=== PATIENT | male | born 1955 | race Caucasian/White ===

== ENCOUNTER 2019-09-27 09:47 | Emergency (ER) | payer MEDICARE, BC, SELFPAY ==
[2019-09-27 09:56] VITALS: BP 149/90; PULSE 61; RESP 16; TEMP 36.6; O2SAT 98; BMI 27.1
--- NOTE | 2019-09-27 10:14 | W.ED.ANIMALB ---
HPI - Animal Bite General: Chief Complaint: Animal Bite Stated Complaint: dog bite Time Seen by Provider: 09/27/19 10:03 History of Present Illness: HPI narrative: Patient was riding his bicycle and was bit on the lower left leg by the neighbors dog. complaint: animal bite Onset (ago): minute(s) Animal: dog Description of animal: household pet, immunizations unknown and appeared well Mechanism: bite Location - Extremities: Left: lower leg Pain description: sharp Severity scale (1-10): 2 Context: other Associated symptoms: Reports no associated symptoms Review of Systems General: Reports: 10 or more systems reviewed and unremarkable except in HPI and below PFSH ED PFSH: Social History Smoking and tobacco status: never smoked Physical Exam Narrative: EXAM NARRATIVE: Puncture wound with some excoriated tissue to the anterior aspect of the lower left leg. There is also a puncture wound with excoriated tissue on the posterior lateral aspect of the left lower leg. Course Vital Signs: Vital signs: Vital Signs Temperature 97.8 F 09/27/19 09:56 Pulse Rate 61 09/27/19 09:56 Respiratory Rate 16 09/27/19 09:56 Blood Pressure 149/90 09/27/19 09:56 Pulse Oximetry 98 09/27/19 09:56 MDM - Animal Bite MDM Narrative: Medical decision making narrative: The wounds were thoroughly cleaned with Betadine. Patient was given a tetanus shot and a prescription for antibiotics. Discharge Plan Discharge Patient Disposition: Home, Self-Care Clinical Impression: Dog bite Qualifiers: Encounter type: initial encounter Qualified Code(s): W54.0XXA - Bitten by dog, initial encounter Condition: Stable Prescriptions: New Augmentin 875-125 mg tablet 1 tab PO BID Qty: 20 RF: 0 No Action metoprolol tartrate 25 mg tablet 12.5 mg PO BID 30 Days Qty: 30 RF: 6 Aspir-81 81 mg Tablet,Delayed Release (Dr/Ec) 81 mg PO DAILY RF: 0 Plavix 75 mg tablet 75 mg PO DAILY RF: 0 simvastatin 40 mg tablet 40 mg PO DAILY RF: 0 Discharge Orders: Discharge Order (Routine); Ordered 09/27/19 Ordered By: Yury Olivares Referrals: Emil Lynch Jr, MD [Primary Care Provider] - Patient Instructions: Animal Bite (ED) Coding Level of Care Code ED Environmental Health Physician for Rajesh Sykes
[2019-09-27] MEDS: tetanus-diphtheria tox (adult) 0.5 mL SDV IM (10:26)
== END 2019-09-27 10:28 | disposition home or self-care (01) ==
PROVIDERS: Emergency Provider Family Medicine; PCP Family Medicine
DX: S81.852A Open bite, left lower leg, initial encounter (principal); W54.0XXA Bitten by dog, initial encounter; Z79.82 Long term (current) use of aspirin; Z23 Encounter for immunization
CPT/HCPCS: 12345; 90471; 90714; 99281; 99283

== ENCOUNTER 2019-12-22 05:44 | Outpatient (CLI) | payer MEDICARE, BC, SELFPAY ==
--- NOTE | 2019-12-25 13:21 | ONC FU_ITS ---
Dr. Vargas follow up note Patient: Richie Hahn Unit #: [id number]: 1955 Dicatated By: Shin Vargas M.D.Date of Visit:Dec 22, 2019 Telehealth Progress Note The patient has been informed that the visit may not be secure and acknowledged the information. I have explained the option of participating in a telephone or video visit during the [facility]- public [facility] emergency to the patient. After being given an opportunity to ask questions about and discuss this type of visit, the patient verbally consented to proceeding with the telephone/video visit. the patient understands that this service replaces an office visit and they may be billed and /or responsible for any applicable copayments History of Present Illness: Mr. Lamin Hahn, 64-year-old gentleman with an abnormal CBC.. In February 2016 was found to have mildly elevated white blood count at 13.2 and differential showed mild increase in lymphocytes 47% normal platelet count and H&H repeat labs on 09/21/2016 showed white blood count 15.4, hemoglobin 15.5 crit 47.5 platelets 259 , neutrophil 38% lymphocytes 54% and a CBC from 11/07/2016 showed white blood count stable at 15.2 hemoglobin 15.3 crit 47.4 platelets 265 neutrophils 37% lymphocytes 55% with a normal monocytes eosinophils and basophils Flow cytometry done on 11/26/2016 confirmed CLL/small lymphocytic lymphoma and FISH showed negative for deletion of MYB, MERT, RB1, chromosome 13q and TP 53, trisomy 12, IGH rearrangement, IGH-CCND1 (11;14) fusion. Evaluated via telephone, patient denies any specific complaints, no night sweats, no fever chills, no weight loss, no peripheral lymphadenopathy, no abdominal fullness, no generalized weakness and fatigue, no nosebleed or gum bleed, no jaundice, no melena or hematochezia or petechia or ecchymosis, no early fullness, no hemoptysis or hematemesis or nosebleed. Medications: Aspirin 1 Tablet (of 81 mg) Tablet, enteric coated Oral daily, Clopidogrel Bisulfate 1 Tablet (of 75 mg) Oral daily, Metoprolol Tartrate 1 Tablet (of 25 mg) Oral b.i.d., Nitrostat Tablet, sublingual Sublingual PRN, Simvastatin 1 Tablet (of 40 mg) Oral daily Allergies: No Known Allergies. Review of Systems: Review of Systems is not available for this patient. Vital Signs: Vitals are not available for this patient. Performance Status: 0 - Fully active, able to carry on all predisease activities without restrictions. (ECOG) Physical Examination: ENMT - Patient denies any mouth sores thrush or jaundice, Respiratory - Patient denies any shortness of breath or wheezing, Cardiovascular - Patient denies any palpitation or tachycardia, Abdomen - Patient denies any abdominal pain or fullness, Extremities - Patient denies any visible edema. 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 Her lab work-up is within normal range except persistent mild leukocytosis/lymphocytosis Patient also had question regarding coronavirus prevention, patient was advised to be her mask in public places and maintains social distancing and in case he has any flulike symptoms, need to contact us or PMD or go to public health department for COVID-19 testing. We will continue to monitor and he will return to clinic in 6 months with CBC and LDH Time spent on the phone 14 minutes Signed By: Shin Vargas M.D. <<Signature on File>>
== END 2019-12-22 05:45 | disposition home or self-care (01) ==
LOC: ONCMED 05:46
PROVIDERS: PCP Family Medicine; Visit Provider Internal Medicine Hematology & Oncology
DX: C91.10 Chronic lymphocytic leukemia of B-cell type not having achieved remission (principal)

== ENCOUNTER 2020-06-22 12:59 | Outpatient (CLI) | payer MEDICARE, BC, SELFPAY ==
[2020-06-22 13:37] LABS: Basophils # 0.1 10^3/uL (0.0-0.1); Basophils % 0.4 %; Eosinophils # 0.2 10^3/uL (0.0-0.8); Eosinophils % 0.8 %; Hematocrit 48.8 % (42.0-52.0); Hemoglobin 16.3 g/dL (11.7-16.6); Lymphocytes # 14.1 10^3/uL (0.8-4.8); Lymphocytes % 61.2 %; Mean Corpuscular HGB Conc 33.4 g/dL (30.0-36.0); Mean Corpuscular Hemoglobin 30.6 pg (28.0-34.0); Mean Corpuscular Volume 91.6 fL (80-94); Mean Platelet Volume 9.1 fL (7.4-10.4); Monocytes # 3.1 10^3/uL (0.2-0.9); Monocytes % 13.3 %; Neutrophils # 5.53 10^3/uL (1.8-7.7); Nucleated Red Blood Cells % 0 %; Platelet Count 255 10^3/cmm (130-400); Red Blood Count 5.33 10^6/uL (4.1-5.3); White Blood Count 23.1 10^3/uL (4.0-10.0)
[2020-06-22 14:26] LABS: Lactate Dehydrogenase 232 U/L (135-225)
[2020-06-22 14:38] LABS: Slide Review Slide Review Perform
--- NOTE | 2020-06-22 16:48 | ONC FU_ITS ---
Dr. Vargas follow up note Patient: Richie Hahn Unit #: [id number]: 1955 Dicatated By: Shin Vargas M.D.Date of Visit:Jun 22, 2020 Onc Med Follow-up/Prog Note History of Present Illness: Mr. Lamin Hahn, 64-year-old gentleman with an abnormal CBC.. In February 2016 was found to have mildly elevated white blood count at 13.2 and differential showed mild increase in lymphocytes 47% normal platelet count and H&H repeat labs on 09/21/2016 showed white blood count 15.4, hemoglobin 15.5 crit 47.5 platelets 259 , neutrophil 38% lymphocytes 54% and a CBC from 11/07/2016 showed white blood count stable at 15.2 hemoglobin 15.3 crit 47.4 platelets 265 neutrophils 37% lymphocytes 55% with a normal monocytes eosinophils and basophils Flow cytometry done on 11/26/2016 confirmed CLL/small lymphocytic lymphoma and FISH showed negative for deletion of MYB, MERT, RB1, chromosome 13q and TP 53, trisomy 12, IGH rearrangement, IGH-CCND1 (11;14) fusion. Came for follow-up, denies any specific complaints, no fever chills, no nausea or vomiting, no diarrhea constipation, no night sweats, no recurrent fever, but 2 pounds weight loss, patient has recently started keto diet. No peripheral lymphadenopathy, no abdominal fullness. Medications: Aspirin 1 Tablet (of 81 mg) Tablet, enteric coated Oral daily, Clopidogrel Bisulfate 1 Tablet (of 75 mg) Oral daily, Metoprolol Tartrate 1 Tablet (of 25 mg) Oral b.i.d., Nitrostat Tablet, sublingual Sublingual PRN, Simvastatin 1 Tablet (of 40 mg) Oral daily Allergies: No Known Allergies. Review of Systems: Review of Systems is not available for this patient. Vital Signs: Performed on Jun 22, 2020 15:14 Height - 72.00 in Weight - 199.6 lbs (HIGH) BSA - 2.13 sq.m BMI - 27.07 Temperature - 99.1 F (HIGH) Pulse - 63 /min Respiration - 18 /min BP - 142/85 mm(hg) (HIGH) O2 Sat - 97 % Pain - 0 Fatigue - 0 Performance Status: 0 - Fully active, able to carry on all predisease activities without restrictions. (ECOG) Physical Examination: ENMT - , No mouth sores, no thrush, no jaundice, no cervical or axillary lymphadenopathy, Respiratory - Lungs are clear to auscultation, Cardiovascular - Regular rate and rhythm of heart, Abdomen - Soft, bowel sounds present, Extremities - No visible edema. Lab/Imaging: Most recent lab results are not available for this patient. 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 Lab work-up is stable and in normal range except mild/moderate leukocytosis/lymphocytosis due to CLL, will continue to monitor and he will return to clinic in 6 months. Patient has received Covid vaccine x1 and awaiting for second dose. Signed By: Shin Vargas M.D. <<Signature on File>>
== END 2020-06-22 13:00 | disposition home or self-care (01) ==
LOC: ONCMED 13:03
PROVIDERS: PCP Family Medicine; Visit Provider Internal Medicine Hematology & Oncology
DX: C91.10 Chronic lymphocytic leukemia of B-cell type not having achieved remission (principal)
CPT/HCPCS: 83615; 85025; 99214

== ENCOUNTER 2020-12-21 10:58 | Outpatient (CLI) | payer MEDICARE, BC, SELFPAY ==
[2020-12-21 11:43] LABS: Basophils # 0.1 10^3/uL (0.0-0.1); Basophils % 0.5 %; Eosinophils # 0.3 10^3/uL (0.0-0.8); Eosinophils % 1.3 %; Hematocrit 47.9 % (42.0-52.0); Hemoglobin 16.1 g/dL (11.7-16.6); Lymphocytes # 16.5 10^3/uL (0.8-4.8); Lymphocytes % 63.6 %; Mean Corpuscular HGB Conc 33.6 g/dL (30.0-36.0); Mean Corpuscular Hemoglobin 31.1 pg (28.0-34.0); Mean Corpuscular Volume 92.6 fl (80-94); Mean Platelet Volume 8.7 fL (7.4-10.4); Monocytes # 3.5 10^3/uL (0.2-0.9); Monocytes % 13.7 %; Neutrophils # 5.36 10^3/uL (1.8-7.7); Neutrophils % 20.7 %; Nucleated Red Blood Cells % 0 %; Platelet Count 268 10^3/cmm (130-400); Red Blood Count 5.17 10^6/uL (4.1-5.3); Red Cell Distribution Width 13.1 % (12.1-15.1); White Blood Count 25.9 10^3/uL (4.0-10.0)
[2020-12-21 12:04] LABS: Alanine Aminotransferase 22 U/L (0-41); Alkaline Phosphatase 55 IU/L (40-130); Anion Gap 14.5 (5-19); Aspartate Amino Transferase 22 U/L (0-40); Blood Urea Nitrogen 20 mg/dL (8-23); Calcium 8.8 mg/dL (8.5-10.5); Carbon Dioxide 23 mmol/L (22-29); Chloride 106 mmol/L (98-107); Globulin 2.3 g/dL (1.3-4.6); Glomerular Filtration Rate 112.5 mL/min (90-130); Glucose 95 mg/dL (65-115); Lactate Dehydrogenase 178 U/L (135-225); Osmolality Calculated 290 mOsm/kg (285-295); Potassium 4.5 mmol/L (3.5-5.1); Sodium 139 mmol/L (136-145); Total Bilirubin 0.8 mg/dL (0.15-1.2); Total Protein 6.3 g/dL (6.6-8.7)
[2020-12-21 12:19] LABS: Slide Review Slide Review Perform
--- NOTE | 2020-12-22 11:40 | ONC FU_ITS ---
Dr. Vargas follow up note Patient: Richie Hahn Unit #: [id number]: 1955 Dicatated By: Shin Vargas M.D.Date of Visit:Dec 21, 2020 Onc Med Follow-up/Prog Note History of Present Illness: Mr. Lamin Hahn, 65-year-old gentleman with an abnormal CBC.. In February 2016 was found to have mildly elevated white blood count at 13.2 and differential showed mild increase in lymphocytes 47% normal platelet count and H&H repeat labs on 09/21/2016 showed white blood count 15.4, hemoglobin 15.5 crit 47.5 platelets 259 , neutrophil 38% lymphocytes 54% and a CBC from 11/07/2016 showed white blood count stable at 15.2 hemoglobin 15.3 crit 47.4 platelets 265 neutrophils 37% lymphocytes 55% with a normal monocytes eosinophils and basophils Flow cytometry done on 11/26/2016 confirmed CLL/small lymphocytic lymphoma and FISH showed negative for deletion of MYB, MERT, RB1, chromosome 13q and TP 53, trisomy 12, IGH rearrangement, IGH-CCND1 (11;14) fusion. Came for follow-up, denies any specific complaints, no fever chills, no nausea or vomiting, no diarrhea constipation, no night sweats, no weight loss, no recurrent fever, no peripheral lymphadenopathy or abdominal fullness, no petechia or ecchymosis, no jaundice, ECOG 0 Medications: Aspirin 1 Tablet (of 81 mg) Tablet, enteric coated Oral daily, Clopidogrel Bisulfate 1 Tablet (of 75 mg) Oral daily, Metoprolol Tartrate 1 Tablet (of 25 mg) Oral b.i.d., Nitrostat Tablet, sublingual Sublingual PRN, Simvastatin 1 Tablet (of 40 mg) Oral daily Allergies: No Known Allergies. Review of Systems: Review of Systems is not available for this patient. Vital Signs: Performed on Dec 21, 2020 13:25 Height - 72.00 in Weight - 199.0 lbs (LOW) BSA - 2.13 sq.m BMI - 26.99 Temperature - 97.9 F (LOW) Pulse - 62 /min Respiration - 17 /min BP - 126/82 mm(hg) O2 Sat - 97 % Pain - 0 Performance Status: Perf. Status is not available for this patient. Physical Examination: ENMT - No mouth sores, no thrush, no jaundice, no cervical lymphadenopathy or axillary lymphadenopathy, Respiratory - Lungs are clear to auscultation, Cardiovascular - Regular rate and rhythm of heart, Abdomen - Soft, bowel sounds present, Extremities - No visible edema. Lab/Imaging: Test performed on Aug 08, 2020 08:59 Cholesterol, Total 135 mg/dL Glucose 84 mg/dL BUN 17 mg/dL HDL Cholesterol 55 mg/dL Creatinine 0.86 mg/dL LDL Cholesterol 68 mg/dL Cr Clearance (Est) 106.74 mL/min Triglycerides 61 mg/dL Sodium 141 mmol/L Potassium 4.0 mmol/L Chloride 110 mmol/L CO2 26 mmol/L Calcium 8.3 mg/dL Protein, Total 6.2 g/dL Albumin 3.4 g/dL Bilirubin, Total 1.4 mg/dL Alkaline Phosphatase 48 IU/L AST (SGOT) 34 IU/L ALT (SGPT) 32 IU/L WBC 21.2 10^9/L RBC 4.84 10^12/L HGB 14.9 g/dL HCT 47.3 % MCV 97.7 fl MCH 30.8 pg MCHC 31.5 g/dL RDW 14.5 % Platelet Count 231 10^9/L MPV 9.3 fL Neutrophils (Gran) 3.8 10^9/L Lymphocytes 16.5 10^9/L Monocytes 0.8 10^9/L Eosinophils 0.0 10^9/L Basophils 0.0 10^9/L Manual Lymphocytes 78 % Manual Monocytes 4 % Manual Eosinophils 0 % Manual Basophils 0 % Impression: 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 on 11/26/2016 CLL panel, FISH showed negative for deletion of MYB,, MERT, RB1, chromosome 13q and Tp53, trisomy 12, IGH rearrangement, and IGH-CCND1 (11;14) fusion stage 0 Plan: Discussed with patient regarding his labs white blood count 25.9 hemoglobin 16.1 hematocrit 47.9 platelets 268,000 absolute lymphocyte count 16,500 compared to 60,500 previously in July 2020 CMP within normal limits including LDH Clinically, patient doing well with no new signs symptoms history of disease progression, no evidence of peripheral lymphadenopathy on exam and follow-up lab work-up shows persistent mild/moderate leukocytosis/lymphocytosis but stable, LDH is within normal range along with CMP and hemoglobin and platelet count, will continue to monitor he will return to clinic in 6 months with CBC CMP and LDH Signed By: Shin Vargas M.D. <<Signature on File>>
== END 2020-12-21 10:59 | disposition home or self-care (01) ==
LOC: ONCMED 11:03
PROVIDERS: PCP Family Medicine; Visit Provider Internal Medicine Hematology & Oncology
DX: C91.10 Chronic lymphocytic leukemia of B-cell type not having achieved remission (principal); Z79.82 Long term (current) use of aspirin; Z79.899 Other long term (current) drug therapy
CPT/HCPCS: 36415; 80053; 83615; 85025; 99214

== ENCOUNTER → 2021-07-19 14:25 | Outpatient (BNVA) | payer MEDICARE, BC, SELFPAY | PROVIDERS: PCP Family Medicine; Visit Provider Internal Medicine Cardiovascular Disease | DX: I25.10 Atherosclerotic heart disease of native coronary artery without angina pectoris (principal); I10 Essential (primary) hypertension; E78.5 Hyperlipidemia, unspecified; C91.10 Chronic lymphocytic leukemia of B-cell type not having achieved remission | CPT/HCPCS: 93005; 99214 ==

== ENCOUNTER 2021-07-20 12:06 | Outpatient (CLI) | payer MEDICARE, BC, SELFPAY ==
[2021-07-20 12:53] LABS: Hematocrit 48.8 % (42.0-52.0); Mean Corpuscular HGB Conc 32.8 g/dL (30.0-36.0); Mean Corpuscular Hemoglobin 30.5 pg (28.0-34.0); Mean Corpuscular Volume 93.1 fl (80-94); Mean Platelet Volume 8.9 fL (7.4-10.4); Platelet Count 277 10^3/cmm (130-400); Red Blood Count 5.24 10^6/uL (4.1-5.3); Red Cell Distribution Width 13.1 % (12.1-15.1); White Blood Count 23.5 10^3/uL (4.0-10.0)
[2021-07-20 13:15] LABS: Alanine Aminotransferase 20 U/L (0-41); Albumin Level 4.5 g/dL (3.5-5.2); Alkaline Phosphatase 55 IU/L (40-130); Anion Gap 13.5 (5-19); Aspartate Amino Transferase 21 U/L (0-40); Blood Urea Nitrogen 17 mg/dL (8-23); Calcium 9.3 mg/dL (8.5-10.5); Carbon Dioxide 23 mmol/L (22-29); Chloride 107 mmol/L (98-107); Globulin 1.7 g/dL (1.3-4.6); Glomerular Filtration Rate 96.1 mL/min (90-130); Glucose 99 mg/dL (65-115); Lactate Dehydrogenase 189 U/L (135-225); Osmolality Calculated 290 mOsm/kg (285-295); Potassium 4.5 mmol/L (3.5-5.1); Sodium 139 mmol/L (136-145); Total Bilirubin 0.8 mg/dL (0.15-1.2); Total Protein 6.2 g/dL (6.6-8.7)
[2021-07-20 13:20] LABS: Slide Review Slide Review Perform
[2021-07-20 13:21] LABS: Absolute Neutrophil 7.3 10^3/cmm (1.4-6.5); Absolute Segmented Neutrophil 7.3 10/cmm (1.6-7.1); Eosinophils 0 %; Lymphocytes 35 %; Lymphocytes Absolute 11.8 10^3/cmm (1.2-3.4); Monocytes Absolute 4.5 10^3/cmm (0.1-0.6); Platelet Estimate Normal (Normal); Segmented Neutrophils 31 %; Total Cells Counted 100 (0-100)
--- NOTE | 2021-07-21 12:21 | ONC FU_ITS ---
Dr. Vargas follow up note Patient: Richie Hahn Unit #: [id number]: 1955 Dicatated By: Shin Vargas M.D.Date of Visit:Jul 20, 2021 Onc Med Follow-up/Prog Note History of Present Illness: Mr. Lamin Hahn, 66-year-old gentleman with an abnormal CBC.. In February 2016 was found to have mildly elevated white blood count at 13.2 and differential showed mild increase in lymphocytes 47% normal platelet count and H&H repeat labs on 09/21/2016 showed white blood count 15.4, hemoglobin 15.5 crit 47.5 platelets 259 , neutrophil 38% lymphocytes 54% and a CBC from 11/07/2016 showed white blood count stable at 15.2 hemoglobin 15.3 crit 47.4 platelets 265 neutrophils 37% lymphocytes 55% with a normal monocytes eosinophils and basophils Flow cytometry done on 11/26/2016 confirmed CLL/small lymphocytic lymphoma and FISH showed negative for deletion of MYB, MERT, RB1, chromosome 13q and TP 53, trisomy 12, IGH rearrangement, IGH-CCND1 (11;14) fusion. Came for follow-up, denies any specific complaints, no fever chills, no nausea or vomiting, no diarrhea constipation, no night sweats, no peripheral lymphadenopathy, no abdominal fullness, no weight loss, no recurrent fever Medications: Aspirin 1 Tablet (of 81 mg) Tablet, enteric coated Oral daily, Clopidogrel Bisulfate 1 Tablet (of 75 mg) Oral daily, Metoprolol Tartrate 1 Tablet (of 25 mg) Oral b.i.d., Nitrostat Tablet, sublingual Sublingual PRN, Simvastatin 1 Tablet (of 40 mg) Oral daily Allergies: No Known Allergies. Review of Systems: Review of Systems is not available for this patient. Vital Signs: Performed on Jul 20, 2021 14:30 Height - 72.00 in Weight - 202.2 lbs (HIGH) BSA - 2.14 sq.m BMI - 27.42 Temperature - 98.4 F Pulse - 83 /min Respiration - 18 /min BP - 135/76 mm(hg) O2 Sat - 98 % Pain - 0 Fatigue - 2 Performance Status: 0 - Fully active, able to carry on all predisease activities without restrictions. (ECOG) Physical Examination: ENMT - No mouth sores, no thrush, no jaundice, no cervical or axillary lymphadenopathy, Respiratory - Lungs are clear to auscultation, Cardiovascular - Regular rate and rhythm of heart, Abdomen - Soft, bowel sounds present, Extremities - No visible edema. Lab/Imaging: Most recent lab results are not available for this patient. Impression: 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 on 11/26/2016 CLL panel, FISH showed negative for deletion of MYB,, MERT, RB1, chromosome 13q and Tp53, trisomy 12, IGH rearrangement, and IGH-CCND1 (11;14) fusion stage 0 Plan: Discussed with patient regarding his labs white blood count 23.5 hemoglobin 16 hematocrit 48.8 platelets 277,000 CMP within normal limits LDH 189 Clinically, patient doing well with no new signs symptom or B symptoms suggestive of disease progression his follow-up CBC shows stable isolated leukocytosis/lymphocytosis, on exam no peripheral lymphadenopathy or organomegaly, will continue to monitor and he will return to clinic in 6 months with CBC CMP and LDH Signed By: Shin Vargas M.D. <<Signature on File>>
== END 2021-07-20 12:07 | disposition home or self-care (01) ==
PROVIDERS: PCP Family Medicine; Visit Provider Internal Medicine Hematology & Oncology
DX: C91.10 Chronic lymphocytic leukemia of B-cell type not having achieved remission (principal); R79.89 Other specified abnormal findings of blood chemistry
CPT/HCPCS: 36415; 80053; 83615; 85007; 85025; 99214

== ENCOUNTER 2021-11-10 09:53 | Outpatient (CLI) | payer MEDICARE, BC, SELFPAY ==
[2021-11-10 10:59] VITALS: BMI 26.8
--- NOTE | 2021-11-10 11:09 | ECG_ITS ---
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 Interpretive Statements NAME OF STUDY: EXERCISE SESTAMIBI STRESS TEST INDICATION: Fatigue/pci, PROCEDURE: The baseline electrocardiogram showed normal sinus rhythm with normal ST-Ts. At the baseline, the patient's blood pressure was 139/87 mm Hg with a heart rate of 65. The patient exercised for 10 minutes and 27 seconds on a standard Charanjit protocol. Patient attained a maximum heart rate of 135 beats per minute(88% of the maximum predicted heart rate) with a blood pressure at the peak exercise of 191/116 mm Hg. The EKG at the peak exercise revealed some nonspecific ST changes were noted.. Patient did not have any chest pain or any significant arrhythmis with the exercise Sestamibi was injected 1 minute prior to the peak exercise During the recovery phase, there were no new changes. Blood pressure at the end of the recovery phase was 130/92 mm Hg with a heart rate of 75 per minute. CONCLUSION: 1. Nonspecific EKG changes with the [treadmill exercise 2. No exercise-induced chest pain or cardiac arrhythmia 3. Good exercise tolerance, attained a maximum of 13.5 METs 4. Sestamibi/Sestamibi perfusion results pending; see separate report. Electronically Signed On 11-10-2021 15:41:36 CDT by Jason Sal M.D. [id number]
--- NOTE | 2021-11-10 11:10 | NMCV_ITS ---
NM morro perf SPECT r/s* [id number] Richie Hahn Age: 66 Gender: M : 1955 Exam Date: 11/10/2021 11:27 Ordering Phys: Jason Sal MD ([email or web address]) Technologist: MYRANDA Jimenez Exam Location: [facility] Indications: SHORTNESS OF BREATH STRESS TEST Please see separate stress test report in [facility] for full findings IMAGE PROTOCOL Rest/Stress 1 Exercise Day Radiopharmaceutical Dose (mCi) Administration Site Administered by Rest: Tc-99m 10.9 IV MYRANDA Maradiaga Sestamibi Stress:Tc-99m 32.9 IV MYRANDA Jimenez Sestamikelly Rest: 10-Nov-2021 60 Discovery 630 Stress: 10-Nov-2021 15 Discovery 630 Radiopharmaceutical was injected at 86 % maximum heart rate. Images obtained in supine and prone position. SPECT RESULTS Technical Quality: Excellent Raw Data Analysis: Normal Image Corrections: No attenuation or motion correction applied Summed Stress Score: 0 Summed Rest Score: 0 Summed Difference Score: 0 PERFUSION FINDINGS Uniform myocardial tracer uptake with no significant perfusion abnormalities FUNCTIONAL RESULTS (calculated via Gated SPECT) Stress Image LV EF (%): 68 Stress EDV (mL):112 TID: 0.89 Stress ESV (mL):36 FUNCTIONAL FINDINGS: Segmental wall motion analysis revealing no gross wall motion abnormalities IMPRESSIONS 1. Myocardial perfusion imaging revealing uniform myocardial tracer uptake with no significant perfusion abnormalities 2. Normal LV ejection fraction of 60%. 3. Segmental wall motion analysis revealing no gross wall motion abnormalities 4. Normal LV volume Low probability for coronary ischemia, based on the above findings Dr Jason Sal MD FACC (Electronically Signed) Final Date: 10 November 2021 13:30 S
[2021-11-10 12:20] VITALS: BP 130/92; PULSE 78
== END 2021-11-10 09:54 | disposition home or self-care (01) ==
LOC: RAD 09:55 → CDL 10:54
PROVIDERS: PCP Family Medicine; Visit Provider Internal Medicine Cardiovascular Disease
DX: R06.02 Shortness of breath (principal)
CPT/HCPCS: 78452; A9500

== ENCOUNTER → 2022-03-01 11:18 | Outpatient (BNVA) | payer MEDICARE, BC, SELFPAY | PROVIDERS: PCP Family Medicine; Visit Provider Internal Medicine Cardiovascular Disease | DX: I25.10 Atherosclerotic heart disease of native coronary artery without angina pectoris (principal); C91.10 Chronic lymphocytic leukemia of B-cell type not having achieved remission; E78.5 Hyperlipidemia, unspecified; I10 Essential (primary) hypertension; I25.2 Old myocardial infarction; Z98.61 Coronary angioplasty status | CPT/HCPCS: 99213; 99214 ==

== ENCOUNTER 2022-03-23 09:32 | Oncology outpatient (recurring) (ONCR) | payer MEDICARE, BC, SELFPAY ==
[2022-03-23 10:12] LABS: Hematocrit 46.6 % (42.0-52.0); Hemoglobin 15.5 g/dL (11.7-16.6); Mean Corpuscular HGB Conc 33.3 g/dL (30.0-36.0); Mean Corpuscular Hemoglobin 30.5 pg (28.0-34.0); Mean Corpuscular Volume 91.7 fl (80-94); Mean Platelet Volume 8.9 fL (7.4-10.4); Platelet Count 221 10^3/cmm (130-400); Red Blood Count 5.08 10^6/uL (4.1-5.3); Red Cell Distribution Width 13.3 % (12.1-15.1); White Blood Count 26.5 10^3/uL (4.0-10.0)
[2022-03-23 10:34] LABS: Alanine Aminotransferase 27 U/L (0-41); Alkaline Phosphatase 54 U/L (40-130); Anion Gap 13.2 (5-19); Aspartate Amino Transferase 21 U/L (0-40); Blood Urea Nitrogen 14 mg/dL (8-23); Calcium 9.4 mg/dL (8.5-10.5); Carbon Dioxide 26 mmol/L (22-29); Chloride 107 mmol/L (98-107); Globulin 2.4 g/dL (1.3-4.6); Glomerular Filtration Rate 112.1 mL/min (90-130); Glucose 103 mg/dL (65-115); Lactate Dehydrogenase 183 U/L (135-225); Osmolality Calculated 295 mOsm/kg (285-295); Potassium 4.2 mmol/L (3.5-5.1); Sodium 142 mmol/L (136-145); Total Bilirubin 0.6 mg/dL (0.15-1.2); Total Protein 6.4 g/dL (6.6-8.7)
[2022-03-23 10:58] LABS: Absolute Eosinophils 0.2 10^3/cmm (0.0-0.7); Absolute Segmented Neutrophil 4.8 10/cmm (1.6-7.1); Eosinophils 1 %; Lymphocytes 4 %; Lymphocytes Absolute 19.9 10^3/cmm (1.2-3.4); Segmented Neutrophils 18 %; Total Cells Counted 100 (0-100)
[2022-03-23 10:59] LABS: Absolute Neutrophil 4.8 10^3/cmm (1.4-6.5); Blastocytes 3 % (0-0); Platelet Estimate Normal (Normal)
== END 2022-04-21 23:59 | disposition home or self-care (01) ==
LOC: ONCMED 09:32
PROVIDERS: PCP Family Medicine; Visit Provider Internal Medicine Hematology & Oncology
DX: C91.10 Chronic lymphocytic leukemia of B-cell type not having achieved remission (principal)
CPT/HCPCS: 36415; 80053; 83615; 85007; 85025

== ENCOUNTER 2022-05-03 15:28 | Oncology outpatient (recurring) (ONCR) | payer MEDICARE, SELFPAY | END 2022-05-22 23:59 | disposition home or self-care (01) | PROVIDERS: PCP Family Medicine; Visit Provider Internal Medicine Hematology & Oncology | DX: C91.10 Chronic lymphocytic leukemia of B-cell type not having achieved remission (principal); R21 Rash and other nonspecific skin eruption; Z79.899 Other long term (current) drug therapy | CPT/HCPCS: 99214 ==

== ENCOUNTER 2022-06-07 11:21 | Outpatient (CLI) | payer MEDICARE, SELFPAY ==
--- NOTE | 2022-06-07 11:32 | XR_ITS ---
WS: [id number] Left knee, 3 views, 06/07/2022 Clinical Data: PAIN IN LEFT KNEE Comparison: None. Findings: No fractures or dislocations are seen. There is medial joint compartment narrowing with spurring of t he medial femoral condyle and medial tibial plateau. The patella shows posterior spurring. The soft t issues are unremarkable. There is a prominent anterior typical tubercle. XR/XR knee LT 3V* [id number] Impression: Mild osteoarthritis of the left knee. Kellgren-Davon Classification: grade 1 (doubtful): doubtful joint space narr owing and possible osteophytic lipping
== END 2022-06-07 11:22 | disposition home or self-care (01) ==
LOC: RAD 11:26
PROVIDERS: PCP Family Medicine; Visit Provider Family Medicine
DX: M17.12 Unilateral primary osteoarthritis, left knee (principal)
CPT/HCPCS: 73562

== ENCOUNTER 2022-07-10 06:56 | Outpatient (CLI) | payer MEDICARE, SELFPAY ==
--- NOTE | 2022-07-10 | MR_ITS ---
WS: [id number] MRI LEFT KNEE NONCONTRAST TECHNIQUE: Axial PD, coronal PD fat sat, coronal PD, sagittal PD, and sagittal PD fat-sat images obta ined. CLINICAL INFORMATION: LEFT KNEE PAIN COMPARISON: None. FINDINGS: Advanced joint space narrowing medial joint compartment with hypertrophic changes along the joint flakito e. Distal quadriceps and patella tendons are intact. Hypertrophic patella. Chronic appearing tear wit h narrowing and peripheral extrusion of the medial meniscus. Blunting of the residual anterior and po sterior horns. Horizontal tear involving the posterior horn medial meniscus extending to the articula r surface. Diffuse increased signal abnormality involving the anterior horn medial meniscus. Chronic thinning of the lateral meniscus. Degenerative edema involving the medial joint compartment f emoral condyle and tibial plateau. Cystic intraosseous ganglion cyst involving the lateral tibia late rally adjacent to the fibula head measuring 16 x 19 mm. Normal popliteal fossa. Advanced patellofemoral articulation with the small amount of subchondral cathy ma. Medial and lateral patellar retinacula appear intact. Small amount of prepatellar edema. Normal L CL and MCL. MR/MR knee LT wo con* [id number] IMPRESSION: 1. ACL and PCL appear intact. 2. Advanced joint space narrowing medial meniscus with grade IV chondromalacia and subchondral edema. 3. Chronic appearing tears with blunting of the medial meniscus with periphera l extrusion. 4. 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 5. Intraosseous ganglion cyst involving the lateral tibia at the fibula articu lation. 6. LCL and MCL appear intact. Outbridge grading: grade IV: full-thickness cartilage loss with underlying bone reactive changes
== END 2022-07-10 06:57 | disposition home or self-care (01) ==
PROVIDERS: PCP Family Medicine; Visit Provider Family Medicine
DX: M22.42 Chondromalacia patellae, left knee (principal); M67.462 Ganglion, left knee; R60.0 Localized edema
CPT/HCPCS: 73721

== ENCOUNTER → 2022-07-18 12:59 | Outpatient (BNVA) | payer MEDICARE, SELFPAY | PROVIDERS: PCP Family Medicine; Referring Provider Family Medicine; Visit Provider Specialist | DX: M17.12 Unilateral primary osteoarthritis, left knee (principal) | CPT/HCPCS: 73560; 73565; 99204 ==

== ENCOUNTER 2022-11-01 13:55 | Oncology outpatient (recurring) (ONCR) | payer MEDICARE, SELFPAY ==
[2022-11-01 14:03] VITALS: BP 134/84; PULSE 69; RESP 18; TEMP 36.6; O2SAT 97
[2022-11-01 14:15] LABS: Basophils # 0.1 10^3/uL (0.0-0.1); Basophils % 0.4 %; Eosinophils # 0.2 10^3/uL (0.0-0.8); Eosinophils % 0.8 %; Hematocrit 46.3 % (42.0-52.0); Hemoglobin 15.2 g/dL (11.7-16.6); Lymphocytes # 20.6 10^3/uL (0.8-4.8); Lymphocytes % 71.8 %; Mean Corpuscular HGB Conc 32.8 g/dL (30.0-36.0); Mean Corpuscular Volume 94.5 fl (80-94); Mean Platelet Volume 8.6 fL (7.4-10.4); Monocytes # 2.1 10^3/uL (0.2-0.9); Monocytes % 7.3 %; Neutrophils # 5.58 10^3/uL (1.8-7.7); Neutrophils % 19.4 %; Nucleated Red Blood Cells % 0.1 %; Platelet Count 233 10^3/cmm (130-400); White Blood Count 28.7 10^3/uL (4.0-10.0)
[2022-11-01 14:37] LABS: Alanine Aminotransferase 17 U/L (0-41); Albumin Level 3.9 g/dL (3.5-5.2); Alkaline Phosphatase 55 U/L (40-130); Anion Gap 13.5 (5-19); Aspartate Amino Transferase 18 U/L (0-40); Blood Urea Nitrogen 19 mg/dL (8-23); Calcium 8.5 mg/dL (8.5-10.5); Carbon Dioxide 23 mmol/L (22-29); Chloride 110 mmol/L (98-107); Globulin 1.9 g/dL (1.3-4.6); Glomerular Filtration Rate 95.8 mL/min (90-130); Glucose 98 mg/dL (65-115); Osmolality Calculated 296 mOsm/kg (285-295); Potassium 4.5 mmol/L (3.5-5.1); Sodium 142 mmol/L (136-145); Total Bilirubin 0.5 mg/dL (0.15-1.2); Total Protein 5.8 g/dL (6.6-8.7)
[2022-11-01 14:40] LABS: Lactate Dehydrogenase 192 U/L (135-225)
[2022-11-01 14:44] LABS: Slide Review Slide Review Perform
== END 2022-11-19 23:59 | disposition home or self-care (01) ==
PROVIDERS: PCP Family Medicine; Visit Provider Internal Medicine Hematology & Oncology
DX: C91.10 Chronic lymphocytic leukemia of B-cell type not having achieved remission (principal); Z79.899 Other long term (current) drug therapy
CPT/HCPCS: 36415; 80053; 83615; 85025; 99214

== ENCOUNTER 2022-12-18 07:37 | Outpatient (RCR) | payer MEDICARE, SELFPAY | END 2022-12-20 23:59 | disposition home or self-care (01) | LOC: SPT 07:37 | PROVIDERS: Visit Provider Specialist | DX: M17.12 Unilateral primary osteoarthritis, left knee (principal) | CPT/HCPCS: 97110; 97161 ==

== ENCOUNTER 2023-01-20 06:00 | Outpatient (RCR) | payer MEDICARE, SELFPAY | END 2023-01-22 23:59 | disposition home or self-care (01) | LOC: SPT 06:00 | PROVIDERS: Visit Provider Specialist | DX: M17.12 Unilateral primary osteoarthritis, left knee (principal) | CPT/HCPCS: 97530 ==

== ENCOUNTER → 2023-02-19 08:44 | Outpatient (BNVA) | payer MEDICARE, SELFPAY | PROVIDERS: PCP Family Medicine; Visit Provider Nurse Practitioner Family | DX: I25.10 Atherosclerotic heart disease of native coronary artery without angina pectoris (principal); I10 Essential (primary) hypertension; I25.2 Old myocardial infarction | CPT/HCPCS: 99214 ==

== ENCOUNTER 2023-05-08 11:07 | Oncology outpatient (recurring) (ONCR) | payer MEDICARE, SELFPAY ==
[2023-05-08 11:50] VITALS: BP 136/79; PULSE 73; RESP 16; TEMP 36.9
[2023-05-08 11:57] LABS: Mean Corpuscular Hemoglobin 30.5 pg (27-33); Mean Corpuscular Volume 92.5 fl (82-101); Mean Platelet Volume 8.7 fL (7.4-10.4); Platelet Count 225 10^3/cmm (157-399); Red Blood Count 5.08 10^6/uL (3.85-5.65); Red Cell Distribution Width 13.4 % (12.1-15.1)
[2023-05-08 12:14] LABS: White Blood Count 39.02 10^3/uL (3.29-11.43)
[2023-05-08 12:16] LABS: Alanine Aminotransferase 20 U/L (0-41); Alkaline Phosphatase 56 U/L (40-130); Anion Gap 10.9 (5-19); Aspartate Amino Transferase 21 U/L (0-40); Blood Urea Nitrogen 21 mg/dL (8-23); Calcium 9.3 mg/dL (8.5-10.5); Carbon Dioxide 28 mmol/L (22-29); Chloride 105 mmol/L (98-107); Globulin 2.1 g/dL (1.3-4.6); Glomerular Filtration Rate 95.8 mL/min (90-130); Glucose 94 mg/dL (65-115); Lactate Dehydrogenase 209 U/L (135-225); Osmolality Calculated 291 mOsm/kg (285-295); Potassium 4.9 mmol/L (3.5-5.1); Sodium 139 mmol/L (136-145); Total Bilirubin 0.7 mg/dL (0.15-1.2); Total Protein 6.1 g/dL (6.6-8.7)
[2023-05-08 12:28] LABS: Slide Review Slide Review Perform
[2023-05-08 12:29] LABS: Absolute Segmented Neutrophil 3.5 10/cmm (1.6-7.1); Eosinophils 0 %; Lymphocytes 66 %; Monocytes Absolute 2.3 10^3/cmm (0.1-0.6); Segmented Neutrophils 9 %; Total Cells Counted 100 (0-100)
[2023-05-08 12:30] LABS: Lymphocytes Absolute 32.8 10^3/cmm (1.2-3.4)
[2023-05-08 12:54] LABS: Absolute Neutrophil 3.5 10^3/cmm (1.4-6.5); Blastocytes 1 % (0-0); Platelet Estimate Normal (Normal)
== END 2023-05-22 23:59 | disposition home or self-care (01) ==
PROVIDERS: Nurse Practitioner Family; PCP Family Medicine; Visit Provider Internal Medicine Hematology & Oncology
DX: C91.10 Chronic lymphocytic leukemia of B-cell type not having achieved remission (principal); R21 Rash and other nonspecific skin eruption; Z79.899 Other long term (current) drug therapy
CPT/HCPCS: 36415; 80053; 83615; 85007; 85025; 99214

== ENCOUNTER 2023-12-10 13:00 | Oncology outpatient (recurring) (ONCR) | payer MEDICARE, SELFPAY ==
[2023-12-10 13:25] LABS: Hematocrit 42.6 % (37-53); Mean Corpuscular HGB Conc 32.2 g/dL (30-55); Mean Corpuscular Hemoglobin 31.1 pg (27-33); Mean Corpuscular Volume 96.8 fl (82-101); Mean Platelet Volume 8.5 fL (7.4-10.4); Platelet Count 231 10^3/cmm (157-399); Red Cell Distribution Width 14.3 % (12.1-15.1)
[2023-12-10 13:39] LABS: Alanine Aminotransferase 19 U/L (0-41); Alkaline Phosphatase 61 U/L (40-130); Anion Gap 15.6 (5-19); Aspartate Amino Transferase 21 U/L (0-40); Blood Urea Nitrogen 21 mg/dL (8-23); Calcium 8.5 mg/dL (8.5-10.5); Carbon Dioxide 22 mmol/L (22-29); Chloride 107 mmol/L (98-107); Globulin 1.7 g/dL (1.3-4.6); Glomerular Filtration Rate 83.4 mL/min (90-130); Glucose 151 mg/dL (65-115); Lactate Dehydrogenase 207 U/L (135-225); Osmolality Calculated 296 mOsm/kg (285-295); Potassium 4.6 mmol/L (3.5-5.1); Sodium 140 mmol/L (136-145); Total Protein 5.7 g/dL (6.6-8.7)
[2023-12-10 13:51] LABS: White Blood Count 75.51 10^3/uL (3.29-11.43)
[2023-12-10 13:56] LABS: Absolute Eosinophils 0.8 10^3/cmm (0.0-0.7); Eosinophils 1 %; Lymphocytes 59 %; Monocytes Absolute 3.8 10^3/cmm (0.1-0.6); Segmented Neutrophils 8 %; Slide Review Slide Review Perform; Total Cells Counted 100 (0-100)
[2023-12-10 13:57] LABS: Lymphocytes Absolute 64.9 10^3/cmm (1.2-3.4); Platelet Estimate Normal (Normal); Smudge Cells 3+
== END 2023-12-21 23:59 | disposition home or self-care (01) ==
PROVIDERS: Nurse Practitioner Family; PCP Family Medicine; Visit Provider Internal Medicine Hematology & Oncology
DX: C91.10 Chronic lymphocytic leukemia of B-cell type not having achieved remission (principal); Z79.899 Other long term (current) drug therapy
CPT/HCPCS: 36415; 80053; 83615; 85007; 85025; 99214

== ENCOUNTER 2024-01-13 12:55 | Oncology outpatient (recurring) (ONCR) | payer MEDICARE, SELFPAY ==
[2024-01-13 13:27] LABS: Hematocrit 43.8 % (37-53); Mean Corpuscular HGB Conc 32.9 g/dL (30-55); Mean Corpuscular Hemoglobin 31.2 pg (27-33); Mean Platelet Volume 8.6 fL (7.4-10.4); Platelet Count 254 10^3/cmm (157-399); Red Blood Count 4.61 10^6/uL (3.85-5.65); Red Cell Distribution Width 13.6 % (12.1-15.1)
[2024-01-13 13:44] LABS: Alanine Aminotransferase 13 U/L (0-41); Albumin Level 3.9 g/dL (3.5-5.2); Alkaline Phosphatase 67 U/L (40-130); Anion Gap 13.8 (5-19); Aspartate Amino Transferase 17 U/L (0-40); Blood Urea Nitrogen 19 mg/dL (8-23); Calcium 8.9 mg/dL (8.5-10.5); Carbon Dioxide 23 mmol/L (22-29); Chloride 107 mmol/L (98-107); Globulin 2.1 g/dL (1.3-4.6); Glomerular Filtration Rate 83.4 mL/min (90-130); Glucose 78 mg/dL (65-115); Lactate Dehydrogenase 190 U/L (135-225); Osmolality Calculated 289 mOsm/kg (285-295); Potassium 4.8 mmol/L (3.5-5.1); Sodium 139 mmol/L (136-145); Total Bilirubin 0.5 mg/dL (0.15-1.2)
[2024-01-13 14:23] LABS: Slide Review Slide Review Perform
[2024-01-13 14:24] LABS: White Blood Count 67.58 10^3/uL (3.29-11.43)
[2024-01-13 14:36] LABS: Total Cells Counted 100 (0-100)
[2024-01-13 14:37] LABS: Absolute Segmented Neutrophil 9.5 10/cmm (1.6-7.1); Segmented Neutrophils 14 %
[2024-01-13 14:38] LABS: Absolute Eosinophils 1.4 10^3/cmm (0.0-0.7); Eosinophils 2 %; Lymphocytes 61 %; Lymphocytes Absolute 54.7 10^3/cmm (1.2-3.4); Platelet Estimate Normal (Normal)
[2024-01-13 14:39] LABS: Smudge Cells 3+
== END 2024-01-20 23:59 | disposition home or self-care (01) ==
LOC: ONCMED 12:56
PROVIDERS: Internal Medicine Medical Oncology; PCP Family Medicine; Visit Provider Internal Medicine Hematology & Oncology
DX: C91.10 Chronic lymphocytic leukemia of B-cell type not having achieved remission (principal); Z79.899 Other long term (current) drug therapy; R21 Rash and other nonspecific skin eruption
CPT/HCPCS: 36415; 80053; 83615; 85007; 85025

== ENCOUNTER 2024-02-10 08:28 | Outpatient (CLI) | payer MEDICARE, SELFPAY ==
--- NOTE | 2024-02-10 08:34 | XRR_ITS ---
PROCEDURE INFORMATION: Exam: XR Chest Exam date and time: 02/10/2024 8:46 AM Age: 68 years old Clinical indication: Condition or disease; Lung condition and disease; Pneumonia; Patient HX: HX of cll TECHNIQUE: Imaging protocol: Radiologic exam of the chest. Views: 2 views. COMPARISON: No relevant prior studies available. FINDINGS: Lungs: Minimal patchy infiltrate or atelectasis is noted involving the lingula. No definite consolidation is appreciated. The right lung is clear. Pleural spaces: Unremarkable. No pleural effusion. No pneumothorax. Heart/Mediastinum: Unremarkable. No cardiomegaly. Bones/joints: Unremarkable. XR/XR chest 2V* [id number] IMPRESSION: 1. Minimal patchy infiltrate or atelectasis noted involving the lingula.
== END 2024-02-10 08:29 | disposition home or self-care (01) ==
LOC: RAD 08:30
PROVIDERS: PCP Family Medicine; Visit Provider Family Medicine
DX: J18.9 Pneumonia, unspecified organism (principal); R91.8 Other nonspecific abnormal finding of lung field
CPT/HCPCS: 71046

== ENCOUNTER 2024-02-13 11:42 | Emergency (ER) | payer MEDICARE, SELFPAY ==
--- NOTE | 2024-02-13 12:01 | ECG_ITS ---
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 Measurements Intervals [place] Rate: 64 P: 63 OR: 155 QRS: 32 QRSD: 82 T: 77 QT: 390 QTc: 404 Interpretive Statements SINUS RHYTHM Compared to ECG 03/10/2016 23:12:58 Sinus bradycardia no longer present Prolonged QT interval no longer present Electronically Signed On 02-13-2024 22:59:01 CDT by Jason Sal M.D. [id number]
[2024-02-13 12:06] VITALS: BP 139/88; PULSE 76; RESP 17; TEMP 36.8; O2SAT 96; BMI 26.4
--- NOTE | 2024-02-13 12:06 | W.ED.SOB ---
HPI - SOB/Dyspnea General: Chief Complaint: Shortness of Breath/Dyspnea Stated Complaint: sob,cough,wheezing Time Seen by Provider: 02/13/24 12:02 History of Present Illness: HPI Narrative: 68-year-old male presents to the emergency room with complaints of shortness of breath. He states he has had pneumonia for several weeks now he has been on Zithromax levofloxacin and is currently on Augmentin. He had a chest x-ray earlier this week that was read as atelectasis versus lingular pneumonia and he was started on Augmentin. He has a history of CLL. He also reports that he recently had COVID. He is not on any anticoagulants but is on Plavix. No history of PE or DVT. He does have a history of coronary disease he relates having chest pain at this time which she states is about a 3 out of 10. He did take a walk yesterday he did not elicit chest pain when walking but had did have increasing shortness of breath. Chest discomfort he is having this time does not radiate to the neck back or arms. Patient had a Lexiscan sestamibi stress test in October 2021 that was negative Associated symptoms: Reports chest pain; Deny abdominal pain or fever(s) Related Data Home Medications Medication Instructions Recorded Confirmed amoxicillin 875 mg-potassium 1 tab PO BID 02/13/24 02/13/24 clavulanate 125 mg tablet aspirin 81 mg tablet,delayed 81 mg PO DAILY 02/13/24 02/13/24 release azithromycin 250 mg tablet 1 mg PO DAILY 02/13/24 02/13/24 clopidogrel 75 mg tablet 75 mg PO DAILY 02/13/24 02/13/24 levofloxacin 500 mg tablet 500 mg PO DAILY 02/13/24 02/13/24 metoprolol tartrate 25 mg tablet 25 mg PO BID 02/13/24 02/13/24 simvastatin 40 mg tablet 40 mg PO DAILY 02/13/24 02/13/24 Previous Rx's Medication Instructions Recorded nitroglycerin 0.4 mg sublingual 0.4 mg sublingual Q5M PRN chest 02/19/23 tablet pain #30 tabs albuterol sulfate 90 mcg/actuation 2 inh inhalation Q4H PRN shortness 02/13/24 aerosol inhaler of breath or wheezing #18 grams budesonide-formoterol HFA 80 2 inh inhalation BID #10.2 grams 02/13/24 mcg-4.5 mcg/actuation aerosol inhaler (Breyna) methylprednisolone 4 mg tablets in See Rx Instructions PO .COMPLEX 02/13/24 a dose pack (Medrol (Sergio)) #21 ea Allergies Allergy/AdvReac Type Severity Reaction Status Date / Time No Known Allergies Allergy Verified 12/10/23 14:50 Review of Systems Const: Denies: fever(s) or chills Card: Reports: chest pain Resp: Reports: dyspnea and non-productive cough GI: Denies: abdominal pain : Denies: dysuria, urinary frequency or urinary urgency Musc: Denies: neck pain or back pain Skin/Breast: Denies: rash PFSH ED PFSH: Medical History History of CA (myocardial infarction) Hyperlipidemia HTN (hypertension) CAD (coronary artery disease) Surgical History S/P PTCA (percutaneous transluminal coronary angioplasty) Family History Denies family history of Diabetes CAD (coronary artery disease) Clotting disorder Dementia Chronic kidney disease (CKD) Suicide Anesthesia complication Bleeding disorder Lung disease Cancer Stroke Social History Smoking and tobacco/nicotine status: never used tobacco/nicotine Alcohol intake: never Substance/Drug Use: never Physical Exam Const: GENERAL APPEARANCE: cooperative ORIENTATION/CONSCIOUSNESS: Yes awake, Yes oriented to person, Yes oriented to place and Yes oriented to time HENMT: COMMON NORMALS: normocephalic, atraumatic and hearing grossly normal bilaterally HEAD & SCALP: normocephalic and atraumatic Resp: COMMON NORMALS: normal respiratory effort, No retractions, No use of accessory muscles and clear to auscultation bilaterally AUSCULTATION: clear to auscultation bilaterally Cardio: COMMON NORMALS: regular rate, regular rhythm and No murmurs present (Cardio) RATE: regular rate RHYTHM: regular rhythm GI: COMMON NORMALS: Soft to palpation and No hepatosplenomegaly present AUSCULTATION: Yes normoactive bowel sounds PALPATION: Yes Soft to palpation, No Tenderness to palpation present (GI), No Guarding due to palpation present (GI) and Yes No hepatosplenomegaly present Extremity: COMMON NORMALS: normal to inspection, capillary refill normal, no clubbing, cyanosis or edema, no calf tenderness and no pedal edema Neuro: SENSORIUM/ORIENTATION: Yes oriented to person, Yes oriented to place and Yes oriented to time Skin: COMMON NORMALS: no rashes or lesions noted GENERAL SKIN EXAM: no rashes or lesions noted Course Vital Signs: Vital signs: Vital Signs Temperature 98.2 F 02/13/24 12:06 Pulse Rate 61 02/13/24 15:36 Respiratory Rate 17 02/13/24 12:06 Blood Pressure 136/88 02/13/24 15:36 Pulse Oximetry 95 02/13/24 15:36 Oxygen Delivery Me thod Room Air 02/13/24 13:10 MDM - SOB/Dyspnea Medical Decision Making Labs and imaging reviewed. Patient does have significant leukocytosis but he has chronic lymphocytic leukemia. The remainder of his labs are normal his white blood cell count at this point is consistent with where he has been recently. There is no evidence of PE or pneumonia. Think the previous chest x-ray was likely more atelectasis. Suspect he is having postinfectious bronchospasm. Reviewed this with the patient we will start him on Symbicort as well as using albuterol as needed. Steroid taper. Follow-up with his primary care within the next 10 to 14 days Lab Data 02/13/24 12:12 02/13/24 12:12 Labs/Radiology: Radiology Impressions Chest X-Ray 02/13/24 12:07 IMPRESSION: 1. No acute cardiopulmonary finding. Laboratory Results WBC 72.51 10^3/uL (3.29-11.43) H* 02/13/24 12:12 RBC 4.95 10^6/uL (3.85-5.65) 02/13/24 12:12 Hgb 15.20 g/dL (11.27-16.99) 02/13/24 12:12 Hct 47.1 % (37-53) 02/13/24 12:12 MCV 95.2 fl (82-101) 02/13/24 12:12 MCH 30.7 pg (27-33) 02/13/24 12:12 MCHC 32.3 g/dL (30-55) 02/13/24 12:12 RDW 13.2 % (12.1-15.1) 02/13/24 12:12 Plt Count 197 10^3/cmm (157-399) 02/13/24 12:12 MPV 8.6 fL (7.4-10.4) 02/13/24 12:12 Neut % (Auto) 8.8 % 02/13/24 12:12 Lymph % (Auto) 81.3 % 02/13/24 12:12 Casey % (Auto) 8.9 % 02/13/24 12:12 Eos % (Auto) 0.5 % 02/13/24 12:12 Baso % (Auto) 0.2 % 02/13/24 12:12 Neut # (Auto) 6.42 10^3/uL (1.8-7.7) 02/13/24 12:12 Lymph # (Auto) 58.9 10^3/uL (0.8-4.8) H 02/13/24 12:12 Casey # (Auto) 6.4 10^3/uL (0.2-0.9) H 02/13/24 12:12 Eos # (Auto) 0.4 10^3/uL (0.0-0.8) 02/13/24 12:12 Baso # (Auto) 0.1 10^3/uL (0.0-0.1) 02/13/24 12:12 Nucleated RBC % (auto) 0 % 02/13/24 12:12 Nucleated RBCs # 0.0 /100WBC 02/13/24 12:12 D-Dimer <= 0.27 ug/mLFEU (0-0.59) 02/13/24 12:12 Sodium 140 mmol/L (136-145) 02/13/24 12:12 Potassium 4.4 mmol/L (3.5-5.1) 02/13/24 12:12 Chloride 106 mmol/L (98-107) 02/13/24 12:12 Carbon Dioxide 24 mmol/L (22-29) 02/13/24 12:12 Anion Gap 14.4 (5-19) 02/13/24 12:12 BUN 16 mg/dL (8-23) 02/13/24 12:12 Creatinine 0.8 mg/dL (0.7-1.2) 02/13/24 12:12 GFR Calculation 95.6 mL/min (90-130) 02/13/24 12:12 Glucose 113 mg/dL (65-115) 02/13/24 12:12 Calculated Osmolality 292 mOsm/kg (285-295) 02/13/24 12:12 Calcium 8.7 mg/dL (8.5-10.5) 02/13/24 12:12 Total Bilirubin 0.7 mg/dL (0.15-1.2) 02/13/24 12:12 AST 19 U/L (0-40) 02/13/24 12:12 ALT 16 U/L (0-41) 02/13/24 12:12 Alkaline Phosphatase 68 U/L (40-130) 02/13/24 12:12 Troponin T Baseline 13 ng/L (0-15) 02/13/24 12:12 Troponin T 120 Minute 13.19 ng/L (0-15) 02/13/24 14:15 Delta Troponin T 0.19 ABS# (0-10) 02/13/24 14:15 Total Protein 5.7 g/dL (6.6-8.7) L 02/13/24 12:12 Albumin 4.2 g/dL (3.5-5.2) 02/13/24 12:12 Globulin 1.5 g/dL (1.3-4.6) 02/13/24 12:12 Coronavirus (PCR) Negative (Negative) 02/13/24 13:10 Influenza A (PCR) Negative (Negative) 02/13/24 13:10 Influenza Type B (PCR) Negative (Negative) 02/13/24 13:10 RSV (PCR) Negative (Negative) 02/13/24 13:10 All radiology interpretation(s) finalized by discharge Discharge Plan Discharge Patient Disposition: Home Clinical Impression: Post-infection bronchospasm, CLL (chronic lymphocytic leukemia) CAD (coronary artery disease) Qualifiers: Coronary Disease-Associated Artery/Lesion type: [place] artery [place] vs. transplanted heart: [place] heart Associated angina: without angina Qualified Code(s): I25.10 - Atherosclerotic heart disease of [place] coronary artery without angina pectoris Condition: Stable Prescriptions: New budesonide-formoterol [Breyna] 80-4.5 mcg/actuation HFA aerosol inhaler 2 inh inhalation BID Qty: 10.2 0RF albuterol sulfate 90 mcg/actuation HFA aerosol inhaler 2 inh INHALATION Q4H PRN (Reason: shortness of breath or wheezing) Qty: 18 0RF methylprednisolone [Medrol (Sergio)] 4 mg tablets,dose pack See Rx Instructions .ROUTE .COMPLEX Qty: 21 0RF Rx Instructions: orally per package directions No Action nitroglycerin 0.4 mg tablet, sublingual 0.4 mg sublingual Q5M PRN (Reason: chest pain) Qty: 30 3RF Rx Instructions: do not exceed 3 doses per episode azithromycin 250 mg tablet 1 mg PO DAILY aspirin [Aspir-81] 81 mg Tablet,Delayed Release (Dr/Ec) 81 mg PO DAILY levofloxacin 500 mg tablet 500 mg PO DAILY amoxicillin-pot clavulanate 875-125 mg tablet 1 tab PO BID clopidogrel 75 mg tablet 75 mg PO DAILY simvastatin 40 mg tablet 40 mg PO DAILY metoprolol tartrate 25 mg tablet 25 mg PO BID Discharge Orders: Discharge ED (Routine); Ordered 02/13/24 Ordered By: León Iniguez Referrals: Erma Castillo MD [Primary Care Provider] - Discharge Diet: Usual diet Discharge Activity: Increase activity as tolerated Patient Instructions: Opioid Safety, Pain Management Activity Restrictions/Additional Instructions: Thank you for choosing [facility] for your healthcare needs today. It is very important that you follow up as instructed or that you return to the Emergency Department should you have concerns or if your condition changes or worsens in any way. You were seen in the emergency room to be evaluated for recurrent chronic cough shortness of breath and wheezing. He had also describes some chest discomfort and exertional dyspnea. We evaluated you for coronary syndrome there is no evidence of acute coronary syndrome at this time. Your chest x-ray today was normal. Your laboratory test did not show significant abnormalities taking into account your past medical history of CLL. Your vital signs and a D-dimer were done to evaluate for a blood clot both of which were negative. Your chemistry panel was also normal. Chest x-ray done most recently showed either a questionable pneumonia or possible atelectasis given the fact that there is no abnormal finding today suspect that may have been atelectasis. Suspect that your symptoms of shortness of breath and chronic cough are related to postinfection inflammation. Recommend that you start on a prednisone taper also started on Symbicort 2 puffs twice a day and use albuterol as needed. You should follow-up with your doctor within the next 10 to 14 days. Return if you have any worsening or changes symptoms. Coding Level of Care Code ED Fish Conservationist for Rajesh Sykes
--- NOTE | 2024-02-13 12:07 | XR_ITS ---
WS: [id number] Exam: XR chest 1V portable [id number] Date/Time of Exam: 02/13/2024 12:20 PM Reason For Exam: dyspnea/cough Comparison 02/10/2024. Lungs are clear and fully inflated. Normal cardiomediastinal silhouette and regional bony elements. N o pleural effusions. Signs of coronary artery stenting. XR/XR chest 1V portable [id number] IMPRESSION: 1. No acute cardiopulmonary finding.
[2024-02-13 12:46] LABS: Basophils # 0.1 10^3/uL (0.0-0.1); Basophils % 0.2 %; Eosinophils # 0.4 10^3/uL (0.0-0.8); Eosinophils % 0.5 %; Hematocrit 47.1 % (37-53); Lymphocytes # 58.9 10^3/uL (0.8-4.8); Lymphocytes % 81.3 %; Mean Corpuscular HGB Conc 32.3 g/dL (30-55); Mean Corpuscular Hemoglobin 30.7 pg (27-33); Mean Corpuscular Volume 95.2 fl (82-101); Mean Platelet Volume 8.6 fL (7.4-10.4); Monocytes # 6.4 10^3/uL (0.2-0.9); Monocytes % 8.9 %; Neutrophils # 6.42 10^3/uL (1.8-7.7); Neutrophils % 8.8 %; Nucleated Red Blood Cells % 0 %; Platelet Count 197 10^3/cmm (157-399); Red Blood Count 4.95 10^6/uL (3.85-5.65); Red Cell Distribution Width 13.2 % (12.1-15.1)
[2024-02-13 13:01] LABS: D Dimer <= 0.27 ug/mLFEU (0-0.59)
[2024-02-13 13:03] LABS: Alanine Aminotransferase 16 U/L (0-41); Albumin Level 4.2 g/dL (3.5-5.2); Alkaline Phosphatase 68 U/L (40-130); Anion Gap 14.4 (5-19); Aspartate Amino Transferase 19 U/L (0-40); Blood Urea Nitrogen 16 mg/dL (8-23); Calcium 8.7 mg/dL (8.5-10.5); Carbon Dioxide 24 mmol/L (22-29); Chloride 106 mmol/L (98-107); Creatinine Clr Calc Pharmacy 99.5803; Globulin 1.5 g/dL (1.3-4.6); Glomerular Filtration Rate 95.6 mL/min (90-130); Glucose 113 mg/dL (65-115); Osmolality Calculated 292 mOsm/kg (285-295); Potassium 4.4 mmol/L (3.5-5.1); Sodium 140 mmol/L (136-145); Total Bilirubin 0.7 mg/dL (0.15-1.2); Total Protein 5.7 g/dL (6.6-8.7)
[2024-02-13 13:06] LABS: Troponin(5th) Baseline 13 ng/L (0-15)
[2024-02-13 13:10] VITALS: BP 136/84; PULSE 63; O2SAT 94
[2024-02-13 13:11] LABS: Slide Review Slide Review Perform
[2024-02-13 13:12] LABS: White Blood Count 72.51 10^3/uL (3.29-11.43)
[2024-02-13 13:56] LABS: Covid PCR NEGATIVE (Negative); Influenza A NEGATIVE (Negative); Influenza B NEGATIVE (Negative); Respiratory Syncytial Virus Ce NEGATIVE (Negative)
--- NOTE | 2024-02-13 14:26 | ECG_ITS ---
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 Measurements Intervals [place] Rate: 59 P: 63 CO: 161 QRS: 55 QRSD: 81 T: 62 QT: 425 QTc: 422 Interpretive Statements SINUS BRADYCARDIA Compared to ECG 02/13/2024 12:01:18 Sinus rhythm no longer present Electronically Signed On 02-13-2024 23:08:32 CDT by Jason Sal M.D. [id number]
[2024-02-13 14:50] LABS: Troponin 5 2HR 13.19 ng/L (0-15); Troponin 5 2HR Delta 0.19 ABS# (0-10)
[2024-02-13 15:36] VITALS: BP 136/88; PULSE 61; O2SAT 95
== END 2024-02-13 15:36 | disposition home or self-care (01) ==
PROVIDERS: Emergency Provider Family Medicine; PCP Family Medicine
DX: J98.01 Acute bronchospasm (principal); Z86.16 Personal history of COVID-19; Z79.02 Long term (current) use of antithrombotics/antiplatelets; I25.10 Atherosclerotic heart disease of native coronary artery without angina pectoris; C91.10 Chronic lymphocytic leukemia of B-cell type not having achieved remission
CPT/HCPCS: 0241U; 36415; 71045; 80053; 84484; 85025; 85378; 93005; 99285

== ENCOUNTER 2024-02-13 12:16 | Outpatient (CLI) | payer MEDICARE, SELFPAY ==
[2024-02-14 10:52] LABS: Chol HDL Ratio 3.48 mg/dL (1.0-5.00); Cholesterol 146 mg/dL (0-200); HDL Cholesterol 42 mg/dL (60-100); LDL Cholesterol Calculated 74 mg/dL (50-129); LDL HDL Ratio 1.76 RATIO (0.00-3.22); Thyroid Stimulating Hormone 1.62 uIU/mL (0.27-4.20); Triglycerides 152 mg/dL (0-150)
== END 2024-02-13 12:17 | disposition home or self-care (01) ==
PROVIDERS: PCP Family Medicine; Visit Provider Family Medicine
DX: I25.10 Atherosclerotic heart disease of native coronary artery without angina pectoris (principal)
CPT/HCPCS: 80061; 84443

== ENCOUNTER 2024-04-21 15:30 | Oncology outpatient (recurring) (ONCR) | payer MEDICARE, SELFPAY ==
[2024-03-24 13:25] LABS: Hematocrit 43.9 % (37-53); Mean Corpuscular HGB Conc 31.9 g/dL (30-55); Mean Corpuscular Hemoglobin 30.2 pg (27-33); Mean Corpuscular Volume 94.8 fl (82-101); Mean Platelet Volume 8.4 fL (7.4-10.4); Platelet Count 204 10^3/cmm (157-399); Red Blood Count 4.63 10^6/uL (3.85-5.65)
[2024-03-24 13:38] LABS: Alanine Aminotransferase 16 U/L (0-41); Alkaline Phosphatase 63 U/L (40-130); Anion Gap 15.3 (5-19); Aspartate Amino Transferase 24 U/L (0-40); Blood Urea Nitrogen 23 mg/dL (8-23); Calcium 8.7 mg/dL (8.5-10.5); Carbon Dioxide 23 mmol/L (22-29); Chloride 108 mmol/L (98-107); Creatinine Clr Calc Pharmacy 72.2998; Globulin 1.8 g/dL (1.3-4.6); Glomerular Filtration Rate 95.6 mL/min (90-130); Glucose 98 mg/dL (65-115); Lactate Dehydrogenase 249 U/L (135-225); Osmolality Calculated 296 mOsm/kg (285-295); Potassium 5.3 mmol/L (3.5-5.1); Sodium 141 mmol/L (136-145); Total Protein 5.8 g/dL (6.6-8.7)
[2024-03-24 13:54] LABS: White Blood Count 74.78 10^3/uL (3.29-11.43)
[2024-03-24 13:55] LABS: Slide Review Slide Review Perform
[2024-03-24 13:56] LABS: Absolute Eosinophils 0.7 10^3/cmm (0.0-0.7); Absolute Segmented Neutrophil 5.2 10/cmm (1.6-7.1); Eosinophils 1 %; Lymphocytes 79 %; Monocytes Absolute 0.7 10^3/cmm (0.1-0.6); Segmented Neutrophils 7 %; Total Cells Counted 100 (0-100)
[2024-03-24 13:57] LABS: Absolute Neutrophil 5.2 10^3/cmm (1.4-6.5); Platelet Estimate Normal (Normal); Smudge Cells 2+
--- NOTE | 2024-04-21 15:30 | CTR_ITS ---
PROCEDURE INFORMATION: Exam: CT Chest With Contrast; Diagnostic Exam date and time: 04/21/2024 4:16 PM Age: 68 years old Clinical indication: Condition or disease; Other: Cll; Prior surgery; Surgery date: 6+ months; Surgery type: Heart stent; Additional info: Surveillance TECHNIQUE: Imaging protocol: Diagnostic computed tomography of the chest with contrast. Radiation optimization: All CT scans at this facility use at least one of these dose optimization techniques: automated exposure control; mA and/or kV adjustment per patient size (includes targeted exams where dose is matched to clinical indication); or iterative reconstruction. Contrast material: OMNI 350; Contrast volume: 100 ml; Contrast route: INTRAVENOUS (IV); COMPARISON: 1. CR XR chest 1V portable [id number] 02/13/2024 12:[address] dated 03/10/2016. RADIATION DOSE METRICS: Total DLP (mGy-cm): 1120.54 FINDINGS: Thyroid: The visualized thyroid gland is unremarkable. Trachea: The central airways are patent. Lungs: No focal consolidation. Pleural spaces: No significant pleural effusion. No pneumothorax. Heart: The heart is enlarged. No pericardial effusion. Moderate aortic valvular calcifications. Coronary arteries: Marked LAD coronary calcifications versus stents. Lymph nodes: Bilateral axillary lymphadenopathy and scattered prominent mediastinal lymph nodes, increased in size since 2016. Vasculature: The aorta is normal in caliber. No aneurysm. Bones/joints: The spine demonstrates mild degenerative changes at multiple levels. Soft tissues: Unremarkable. PROCEDURE INFORMATION: Exam: CT Abdomen And Pelvis With Contrast Exam date and time: 04/21/2024 4:16 PM Age: 68 years old Clinical indication: Condition or disease; Other: Cll; Prior surgery; Surgery date: 6+ months; Surgery type: Heart stent; Additional info: Surveillance TECHNIQUE: Imaging protocol: Computed tomography of the abdomen and pelvis with contrast. Radiation optimization: All CT scans at this facility use at least one of these dose optimization techniques: automated exposure control; mA and/or kV adjustment per patient size (includes targeted exams where dose is matched to clinical indication); or iterative reconstruction. Contrast material: OMNI 350; Contrast volume: 100 ml; Contrast route: INTRAVENOUS (IV); COMPARISON: 1. CR XR chest 1V portable [id number] 02/13/2024 12:[address] abdomen/pelvis dated 03/10/2016. RADIATION DOSE METRICS: Total DLP (mGy-cm): 1120.54 FINDINGS: Liver: The liver is unremarkable. Gallbladder and biliary ducts: The gallbladder is unremarkable. No biliary dilation. Pancreas: The pancreas is unremarkable. Spleen: Splenomegaly, measuring up to 15.8 cm in AP dimension, increased since 2016. Adrenal glands: The adrenal glands are unremarkable. Kidneys and ureters: The kidneys are otherwise unremarkable. Stomach and bowel: Colonic diverticulosis without evidence of diverticulitis. There is no bowel wall thickening. No bowel obstruction. Appendix: Appendix is not identified. No findings to suggest acute appendicitis. Intraperitoneal space: No significant peritoneal free fluid. No free peritoneal air. Vasculature: The vasculature demonstrates minimal atherosclerotic calcification. No aneurysm. Lymph nodes: Scattered enlarged central mesenteric, soraida hepatis, pericholecystic and upper retroperitoneal lymph nodes, new since 2016. There is also bilateral external iliac chain and right inguinal lymphadenopathy, also new since 2016. Urinary bladder: Scattered bladder diverticula. There is mild wall thickening and inflammatory stranding along the baker of multiple bladder diverticula, most pronounced at the bladder dome (see for example series 11, image 36). Reproductive: The prostate demonstrates nonspecific parenchymal calcifications. Bones/joints: The spine demonstrates mild degenerative changes at multiple levels. Nonspecific sclerotic foci within the right proximal femur, previously excluded from the field of view, likely bone islands. Soft tissues: Soft tissues are unremarkable as visualized. Other findings: There are small simple right parapelvic cysts. CT/CT chest abdpel w/*[id number] IMPRESSION: 1. Bilateral axillary lymphadenopathy and scattered prominent mediastinal lymph nodes, increased in size since 2016 and likely related to known CLL. 2. No additional intrathoracic findings to suggest metastatic disease within the chest. IMPRESSION: 1. Splenomegaly, increased since 2016 and likely related to known underlying CLL. 2. Scattered enlarged central mesenteric, soraida hepatis, pericholecystic and upper retroperitoneal lymph nodes, as well as bilateral external iliac chain and right inguinal lymphadenopathy, also new since 2016. 3. Scattered bladder diverticula, new since 2016, with mild wall thickening and inflammatory stranding along the baker of some of the diverticula, most pronounced at the bladder dome. Findings may be related to inflammatory cystitis, although underlying lesions are not excluded. Consider cystoscopy, if clinically feasible. 4. Nonspecific sclerotic foci within the right proximal femur, previously excluded from the field of view, likely bone islands. Close attention on follow-up imaging is recommended.
[2024-04-21] MEDS: iohexol 350 mg/mL 500 mL Btl (per mL) PO (16:09)
[2024-04-21] MEDS: iohexol 350 mg/mL 500 mL Btl (per mL) IV (16:27)
== END 2024-04-21 23:59 | disposition home or self-care (01) ==
LOC: RAD 04-22 00:01 → ONCMED 04-23 09:35
PROVIDERS: PCP Family Medicine; Visit Provider Nurse Practitioner Family
DX: Z53.9 Procedure and treatment not carried out, unspecified reason (principal)
CPT/HCPCS: 36415; 71260; 74177; 80053; 83615; 85007; 85025; 99214

== ENCOUNTER 2024-05-19 11:37 | Oncology outpatient (recurring) (ONCR) | payer MEDICARE, SELFPAY ==
[2024-05-19 12:13] LABS: Mean Corpuscular Hemoglobin 30.3 pg (27-33); Mean Corpuscular Volume 97.8 fl (82-101); Mean Platelet Volume 8.5 fL (7.4-10.4); Platelet Count 253 10^3/cmm (157-399); Red Blood Count 4.09 10^6/uL (3.85-5.65); Red Cell Distribution Width 14.2 % (12.1-15.1)
[2024-05-19 12:27] LABS: Alanine Aminotransferase 16 U/L (0-41); Albumin Level 3.8 g/dL (3.5-5.2); Alkaline Phosphatase 65 U/L (40-130); Aspartate Amino Transferase 23 U/L (0-40); Blood Urea Nitrogen 16 mg/dL (8-23); Calcium 8.9 mg/dL (8.5-10.5); Carbon Dioxide 23 mmol/L (22-29); Chloride 106 mmol/L (98-107); Globulin 1.9 g/dL (1.3-4.6); Glomerular Filtration Rate 111.5 mL/min (90-130); Glucose 110 mg/dL (65-115); Osmolality Calculated 286 mOsm/kg (285-295); Sodium 137 mmol/L (136-145); Total Bilirubin 0.8 mg/dL (0.15-1.2); Total Protein 5.7 g/dL (6.6-8.7)
[2024-05-19 12:29] LABS: Anion Gap 13.1 (5-19); Potassium 5.1 mmol/L (3.5-5.1)
[2024-05-19 12:57] LABS: Slide Review Slide Review Perform
[2024-05-19 13:00] LABS: Absolute Segmented Neutrophil 11.4 10/cmm (1.6-7.1); Segmented Neutrophils 11 %; Total Cells Counted 100 (0-100); White Blood Count 103.68 10^3/uL (3.29-11.43)
[2024-05-19 13:01] LABS: Absolute Neutrophil 11.4 10^3/cmm (1.4-6.5); Eosinophils 0 %; Lymphocytes 11 %; Lymphocytes Absolute 92.3 10^3/cmm (1.2-3.4); Platelet Estimate Normal (Normal)
[2024-05-26 15:19] LABS: CLL Prognostic Panel (BBPL) See Report
== END 2024-05-22 23:59 | disposition home or self-care (01) ==
PROVIDERS: Internal Medicine Medical Oncology; PCP Family Medicine; Visit Provider Nurse Practitioner Family
DX: C91.10 Chronic lymphocytic leukemia of B-cell type not having achieved remission (principal); I25.10 Atherosclerotic heart disease of native coronary artery without angina pectoris; Z79.899 Other long term (current) drug therapy; Z86.16 Personal history of COVID-19
CPT/HCPCS: 36415; 80053; 81263; 82232; 85007; 85025; 88185; 88264; 88271; 88367; 88374; 99214

== ENCOUNTER 2024-09-08 12:45 | Oncology outpatient (recurring) (ONCR) | payer MEDICARE, SELFPAY ==
[2024-09-08 13:04] LABS: Basophils # 0.2 10^3/uL (0.0-0.1); Basophils % 0.1 %; Eosinophils # 0.3 10^3/uL (0.0-0.8); Eosinophils % 0.2 %; Hematocrit 42.4 % (37-53); Lymphocytes % 88.3 %; Mean Corpuscular HGB Conc 30.9 g/dL (30-55); Mean Corpuscular Hemoglobin 29.6 pg (27-33); Mean Corpuscular Volume 95.9 fl (82-101); Mean Platelet Volume 8.2 fL (7.4-10.4); Monocytes # 9.9 10^3/uL (0.2-0.9); Monocytes % 7.3 %; Neutrophils # 5.16 10^3/uL (1.8-7.7); Neutrophils % 3.9 %; Nucleated Red Blood Cells % 0 %; Platelet Count 217 10^3/cmm (157-399); Red Blood Count 4.42 10^6/uL (3.85-5.65); Red Cell Distribution Width 14.6 % (12.1-15.1)
[2024-09-08 13:24] LABS: Alanine Aminotransferase 15 U/L (0-41); Albumin Level 4.1 g/dL (3.5-5.2); Alkaline Phosphatase 68 U/L (40-130); Anion Gap 15.1 (5-19); Aspartate Amino Transferase 22 U/L (0-40); Blood Urea Nitrogen 20 mg/dL (8-23); Calcium 8.8 mg/dL (8.5-10.5); Carbon Dioxide 22 mmol/L (22-29); Chloride 109 mmol/L (98-107); Creatinine Clr Calc Pharmacy 100.3308; Globulin 1.8 g/dL (1.3-4.6); Glucose 144 mg/dL (65-115); Osmolality Calculated 297 mOsm/kg (285-295); Potassium 5.1 mmol/L (3.5-5.1); Sodium 141 mmol/L (136-145); Total Bilirubin 0.9 mg/dL (0.15-1.2); Total Protein 5.9 g/dL (6.6-8.7)
[2024-09-08 13:39] LABS: Lymphocytes # 118.9 10^3/uL (0.8-4.8); White Blood Count 134.74 10^3/uL (3.29-11.43)
[2024-09-08 13:41] LABS: Slide Review Slide Review Perform
== END 2024-09-19 23:59 | disposition home or self-care (01) ==
PROVIDERS: PCP Family Medicine; Visit Provider Internal Medicine Medical Oncology
DX: C91.10 Chronic lymphocytic leukemia of B-cell type not having achieved remission (principal); I10 Essential (primary) hypertension
CPT/HCPCS: 36415; 80053; 85025; 99214

== ENCOUNTER → 2024-09-16 13:11 | Outpatient (BNVA) | payer MEDICARE, SELFPAY | PROVIDERS: PCP Family Medicine; Referring Provider Family Medicine; Visit Provider Nurse Practitioner Family | DX: L57.8 Other skin changes due to chronic exposure to nonionizing radiation (principal); L71.8 Other rosacea; L81.4 Other melanin hyperpigmentation; L57.0 Actinic keratosis; L82.0 Inflamed seborrheic keratosis; L29.89 Other pruritus; R20.9 Unspecified disturbances of skin sensation; D48.5 Neoplasm of uncertain behavior of skin | CPT/HCPCS: 11102; 17004; 17110; 99203 ==

== ENCOUNTER → 2024-10-13 09:37 | Outpatient (BNVA) | payer MEDICARE, SELFPAY | PROVIDERS: PCP Family Medicine; Visit Provider Dermatology | DX: C44.612 Basal cell carcinoma of skin of right upper limb, including shoulder (principal); D04.5 Carcinoma in situ of skin of trunk; L57.0 Actinic keratosis | CPT/HCPCS: 12034; 17000; 17262; 17313 ==

== ENCOUNTER 2024-10-20 13:12 | Oncology outpatient (recurring) (ONCR) | payer MEDICARE, SELFPAY ==
[2024-10-20 13:47] LABS: Hematocrit 42.1 % (37-53); Hemoglobin 13.30 g/dL (11.27-16.99); Mean Corpuscular HGB Conc 31.6 g/dL (30-55); Mean Corpuscular Hemoglobin 30.6 pg (27-33); Mean Corpuscular Volume 96.8 fl (82-101); Nucleated Red Blood Cells % 0 %; Platelet Count 222 10^3/cmm (157-399); Red Blood Count 4.35 10^6/uL (3.85-5.65)
[2024-10-20 14:16] LABS: White Blood Count 114.14 10^3/uL (3.29-11.43)
[2024-10-20 14:17] LABS: Slide Review Slide Review Perform
[2024-10-20 14:25] LABS: Alanine Aminotransferase 14 U/L (0-41); Albumin Level 3.9 g/dL (3.5-5.2); Alkaline Phosphatase 72 U/L (40-130); Aspartate Amino Transferase 26 U/L (0-40); Blood Urea Nitrogen 22 mg/dL (8-23); Calcium 9.0 mg/dL (8.5-10.5); Carbon Dioxide 22 mmol/L (22-29); Chloride 108 mmol/L (98-107); Creatinine Clr Calc Pharmacy 99.8962; Globulin 1.9 g/dL (1.3-4.6); Glucose 118 mg/dL (65-115); Osmolality Calculated 294 mOsm/kg (285-295); Sodium 140 mmol/L (136-145); Total Protein 5.8 g/dL (6.6-8.7)
[2024-10-20 14:27] LABS: Anion Gap 15.7 (5-19); Potassium 5.7 mmol/L (3.5-5.1)
[2024-10-20 14:28] LABS: Hepatitis A Antibody IgM Non-Reactive (Nonreactive); Hepatitis B Surface Antigen Non-Reactive (Nonreactive)
== END 2024-11-19 23:59 | disposition home or self-care (01) ==
PROVIDERS: PCP Family Medicine; Visit Provider Internal Medicine Medical Oncology
DX: C91.10 Chronic lymphocytic leukemia of B-cell type not having achieved remission (principal); I10 Essential (primary) hypertension; I25.10 Atherosclerotic heart disease of native coronary artery without angina pectoris; Z79.899 Other long term (current) drug therapy; Z86.16 Personal history of COVID-19; R21 Rash and other nonspecific skin eruption
CPT/HCPCS: 36415; 80053; 85025; 86705; 86706; 86709; 86803; 87340; 99213

== ENCOUNTER → 2024-11-25 12:45 | Outpatient (BNVA) | payer MEDICARE, SELFPAY | PROVIDERS: PCP Family Medicine; Visit Provider Internal Medicine Cardiovascular Disease | DX: I25.10 Atherosclerotic heart disease of native coronary artery without angina pectoris (principal); I10 Essential (primary) hypertension; E78.5 Hyperlipidemia, unspecified; C91.10 Chronic lymphocytic leukemia of B-cell type not having achieved remission; Z79.02 Long term (current) use of antithrombotics/antiplatelets; Z79.82 Long term (current) use of aspirin; Z98.61 Coronary angioplasty status; I25.2 Old myocardial infarction | CPT/HCPCS: 99214 ==

== ENCOUNTER 2024-12-26 11:17 | Emergency (ER) | payer MEDICARE, SELFPAY ==
[2024-12-26 11:17] VITALS: BP 119/87; PULSE 108; RESP 19; TEMP 37.5; O2SAT 98; BMI 27.1
--- OUTSIDE RECORDS SUMMARY | 2024-12-26 11:26 | XMS_ITS ---
Author Organization Unknown Medications Date Medication Dosage DosageUnit StartDate StopDate StopReason Active DoseQuantity DoseUnit Dispense DispenseUnit Refills NdcCode DrugCode PharmacyId IsPrescription MappedMedication Srcstatus Custom 2023 12:00 :00 AM azithromyci n 250 mg tablet 1.57521 0 1 1.311229 0 [id number] P ACTIVE 2023 12:00 :00 AM sb low dose asa ec 81 mg tablet,david yed release 1 M ACTI VE 2023 12:00 :00 AM metoprolol succinate 1 M ACTIVE 2023 12:00 :00 AM simvastatin 1 M ACTIVE 2023 12:00 :00 AM clopidogrel 1 M ACTIVE
[2024-12-26 11:27] VITALS: BP 119/87; PULSE 105; O2SAT 98
--- NOTE | 2024-12-26 11:27 | CTR_ITS ---
PROCEDURE INFORMATION: Exam: CT Head Without Contrast Exam date and time: 12/26/2024 11:31 AM Age: 69 years old Clinical indication: Altered mental status/memory loss; Confusion or disorientation; Additional info: Encephalopathy, altered mental status TECHNIQUE: Imaging protocol: Computed tomography of the head without contrast. Radiation optimization: All CT scans at this facility use at least one of these dose optimization techniques: automated exposure control; mA and/or kV adjustment per patient size (includes targeted exams where dose is matched to clinical indication); or iterative reconstruction. COMPARISON: No relevant prior studies available. RADIATION DOSE METRICS: Total DLP (mGy-cm): 1104.25 FINDINGS: Brain: Gavin-white matter differentiation is well-maintained. No intraparenchymal hemorrhage. No subdural or epidural hematoma or fluid collection. No large mass or mass effect. No evidence of a large territorial infarct. Cerebral ventricles: Ventricular and sulcal pattern is within normal limits. The ventricles are midline in position. No mass effect or midline shift. Paranasal sinuses: Visualized portion of the paranasal sinuses are essentially clear. Mastoid air cells: The mastoid air cells are clear. Orbital cavities: Globes appear symmetric. Bones: The calvarium is intact. No depressed or displaced skull fracture. Soft tissues: Overlying soft tissues are unremarkable. Vasculature: No hyperdense MCA sign. Scattered atherosclerotic plaque along the intracranial segment of the right and left internal carotid artery. Peripheral atherosclerotic plaque along the intracranial segment of the left vertebral artery. CT/CT head wo con* [id number] IMPRESSION: 1. No acute findings within the brain. 2. Ventricular and sulcal pattern is within normal limits. No evidence of a large territorial infarct. Hyperacute ischemic change may not be seen on the initial CT scan. If there remains clinical concern for acute ischemia, follow-up MRI of the brain should be considered.
--- NOTE | 2024-12-26 11:28 | W.ED.GENADLT ---
HPI - General Adult General: Chief complaint: General Medical Stated complaint: DIZZINESS, FALLS Time Seen by Provider: 12/26/24 11:28 History of Present Illness: 69-year-old man with a history of CLL, coronary artery disease and hypertension who presents emergency room with congestion, headache, sinus pain and a mild cough for the last several days. He is afraid he might have COVID. No chest pain. No altered mental status. No focal motor deficits. No abdominal pain. No nausea or vomiting. Subjective fevers at home. Temp is 99.5 on presentation here. Related Data Home Medications ?Medication ?Instructions ?Recorded ?Confirmed fluorouracil 5 % topical cream 1 applic topical DAILY PRN rosacea 10/20/24 12/26/24 aspirin 81 mg tablet,delayed 81 mg PO DAILY 12/26/24 12/26/24 release clopidogrel 75 mg tablet 75 mg PO DAILY 12/26/24 12/26/24 simvastatin 40 mg tablet 40 mg PO QPM 12/26/24 12/26/24 Previous Rx's ?Medication ?Instructions ?Recorded nitroglycerin 0.4 mg sublingual 0.4 mg sublingual Q5M PRN chest 02/19/23 tablet pain #30 tabs albuterol sulfate 90 mcg/actuation 2 inh inhalation Q4H PRN shortness 02/13/24 aerosol inhaler of breath or wheezing #18 grams metoprolol tartrate 25 mg tablet 12.5 mg (1/2 x 25 mg) PO BID #30 11/25/24 tabs dexamethasone 6 mg tablet 6 mg PO DAILY 5 days #5 tabs 12/26/24 doxycycline hyclate 100 mg capsule 100 mg PO BID 7 days #14 caps 12/26/24 Allergies Allergy/AdvReac Type Severity Reaction Status Date / Time No Known Allergies Allergy Verified 11/25/24 13:46 Review of Systems Narrative: Constitutional symptoms: Negative except as documented in HPI. Skin symptoms: Negative except as documented in HPI. Eye symptoms: Negative except as documented in HPI. ENMT symptoms: Negative except as documented in HPI. Respiratory symptoms: Negative except as documented in HPI. Cardiovascular symptoms: Negative except as documented in HPI. Gastrointestinal symptoms: Negative except as documented in HPI. Genitourinary symptoms: Negative except as documented in HPI. Musculoskeletal symptoms: Negative except as documented in HPI. Neurologic symptoms: Negative except as documented in HPI. Psychiatric symptoms: Negative except as documented in HPI. Endocrine symptoms: Negative except as documented in HPI. PFSH ED PFSH: Medical History (Updated 12/26/24 @ 14:08 by Makayla Beverly MD) History of VT (myocardial infarction) Hyperlipidemia HTN (hypertension) CAD (coronary artery disease) Surgical History S/P PTCA (percutaneous transluminal coronary angioplasty) Family History Denies family history of Diabetes CAD (coronary artery disease) Clotting disorder Dementia Chronic kidney disease (CKD) Suicide Anesthesia complication Bleeding disorder Lung disease Cancer Stroke Social History Smoking and tobacco/nicotine status: never used tobacco/nicotine Alcohol intake: never Substance/Drug Use: never Physical Exam Narrative: EXAM NARRATIVE: General: Alert, no acute distress. Skin: Warm, dry. Head: Normocephalic, atraumatic. Neck: Supple, trachea midline. Eye: Extraocular movements are intact. Ears, nose, mouth and throat: mucosa moist. Cardiovascular: Regular, Normal peripheral perfusion. Respiratory: Lungs are clear to auscultation, respirations are non-labored, breath sounds are equal, Symmetrical chest wall expansion. Gastrointestinal: Soft, Nontender, Non distended Musculoskeletal: Normal ROM, no deformity. Neurological: Alert and oriented, No focal neurological deficit observed. Psychiatric: Cooperative, appropriate mood & affect. Course Vital Signs: Vital signs: Vital Signs Temperature 99.5 F 12/26/24 11:17 Pulse Rate 102 H 12/26/24 12:00 Respiratory Rate 19 H 12/26/24 11:17 Blood Pressure 146/73 12/26/24 12:00 Pulse Oximetry 97 12/26/24 12:00 Oxygen Delivery Me thod Room Air 12/26/24 12:00 [facility] - General Adult Medical Decision Making Differential diagnosis for patient with shortness of breath includes but is not limited to and based on the above HPI, review of systems and physical exam: Pneumonia. Bronchitis. Asthma or COPD with acute exacerbation. Acute coronary syndrome / VT. Pulmonary embolism. Anxiety. Congestive heart failure. Viral infections including influenza and Covid-19. Atrial fibrillation. Anxiety. Pleural effusion. Pneumothorax. Orders placed to evaluate differential diagnosis based on the above differential, HPI and physical exam CT head: No acute intracranial process. no intracranial hemorrhage, no evidence of infarct. no evidence of acute fracture.This was reviewed and interpreted by myself the ER physician. Chest x-ray: Does appear to be a chronic scar in the left lower lung base. No acute process. No infiltrate. No pneumothorax. Films were interpreted by myself the emergency room provider and pending final radiology review. Lab Review: Laboratory results were reviewed and interpreted by myself the emergency room physician. White count is higher than usual at 170. I discussed this with Dr. Santos. No renal failure. Flu COVID and RSV are negative. Urinalysis is negative for infection. I reviewed the patient's medical record. From most recent oncology clinic note Mr. Richie Hahn, 68-year-old? gentleman with an abnormal CBC.? In February 2016 was found to have mildly elevated white blood count at 13.2 and differential showed mild increase in lymphocytes 47% normal platelet count and H&H. Repeat labs on 09/21/2016 showed white blood count 15.4,? hemoglobin 15.5 crit 47.5 platelets 259 , neutrophil 38% lymphocytes 54% and a CBC from 11/07/2016 showed white blood count stable at 15.2 hemoglobin 15.3 crit 47.4 platelets 265, neutrophils 37% lymphocytes 55% with a normal monocytes eosinophils and?basophils. Flow cytometry done on 11/26/2016 confirmed CLL/small lymphocytic lymphoma and FISH showed negative for deletion of MYB, MERT, RB1, chromosome 13q and TP 53, trisomy 12, IGH rearrangement, IGH-CCND1 (11;14)? fusion. Reexamination: Patient remained stable. No increased work of breathing. No altered mental status. No focal motor deficits. No oxygen requirements. Consultation: I spoke with Dr. Hernandez who is on-call for oncology and is the patient's dietary cook/oncologist. The increase in the patient's white count is acceptable and does not require any acute interventions and is a response to his being sick. He agrees with steroids and antibiotics at home. Assessment and plan: Upper respiratory infection CLL ?IV Tylenol, IV Decadron and p.o. doxycycline in the emergency room - Discharged home - Discussed plan with patient. Answered any questions. - Evaluation and treatment of this problem were appropriate in the emergency setting. Lab Data 12/26/24 11:53 12/26/24 11:[address] 12/26/24 11:27 IMPRESSION: 1. No acute findings within the brain. 2. Ventricular and sulcal pattern is within normal limits. No evidence of a large territorial infarct. Hyperacute ischemic change may not be seen on the initial CT scan. If there remains clinical concern for acute ischemia, follow-up MRI of the brain should be considered. Laboratory Results WBC 170.70 10^3/uL (3.29-11.43) H* 12/26/24 11:53 RBC 4.36 10^6/uL (3.85-5.65) 12/26/24 11:53 Hgb 13.20 g/dL (11.27-16.99) 12/26/24 11:53 Hct 42.6 % (37-53) 12/26/24 11:53 MCV 97.7 fl (82-101) 12/26/24 11:53 MCH 30.3 pg (27-33) 12/26/24 11:53 MCHC 31.0 g/dL (30-55) 12/26/24 11:53 RDW 14.7 % (12.1-15.1) 12/26/24 11:53 Plt Count 209 10^3/cmm (157-399) 12/26/24 11:53 MPV 8.6 fL (7.4-10.4) 12/26/24 11:53 Neut % (Auto) 5.7 % 12/26/24 11:53 Lymph % (Auto) 87.4 % 12/26/24 11:53 Garrett % (Auto) 6.4 % 12/26/24 11:53 Eos % (Auto) 0.0 % 12/26/24 11:53 Baso % (Auto) 0.1 % 12/26/24 11:53 Neut # (Auto) 9.76 10^3/uL (1.8-7.7) H 12/26/24 11:53 Lymph # (Auto) 149.2 10^3/uL (0.8-4.8) H 12/26/24 11:53 Garrett # (Auto) 11.0 10^3/uL (0.2-0.9) H 12/26/24 11:53 Eos # (Auto) 0.1 10^3/uL (0.0-0.8) 12/26/24 11:53 Baso # (Auto) 0.1 10^3/uL (0.0-0.1) 12/26/24 11:53 Nucleated RBC % (auto) 0 % 12/26/24 11:53 Nucleated RBCs # 0.0 /100WBC 12/26/24 11:53 Sodium 134 mmol/L (136-145) L 12/26/24 11:53 Potassium 4.4 mmol/L (3.5-5.1) 12/26/24 11:53 Chloride 101 mmol/L (98-107) 12/26/24 11:53 Carbon Dioxide 22 mmol/L (22-29) 12/26/24 11:53 Anion Gap 15.4 (5-19) 12/26/24 11:53 BUN 15 mg/dL (8-23) 12/26/24 11:53 Creatinine 0.9 mg/dL (0.7-1.2) 12/26/24 11:53 GFR Calculation Not Reportable 12/26/24 11:53 Glucose 133 mg/dL (65-115) H 12/26/24 11:53 Calculated Osmolality 281 mOsm/kg (285-295) L 12/26/24 11:53 Lactic Acid 1.3 mmol/L (0.5-2.2) 12/26/24 11:53 Calcium 8.8 mg/dL (8.5-10.5) 12/26/24 11:53 Total Bilirubin 1.5 mg/dL (0.15-1.2) H 12/26/24 11:53 AST 16 U/L (0-40) 12/26/24 11:53 ALT 16 U/L (0-41) 12/26/24 11:53 Alkaline Phosphatase 80 U/L (40-130) 12/26/24 11:53 Troponin T Baseline 12 ng/L (0-15) 12/26/24 11:53 Total Protein 5.9 g/dL (6.6-8.7) L 12/26/24 11:53 Albumin 4.0 g/dL (3.5-5.2) 12/26/24 11:53 Globulin 1.9 g/dL (1.3-4.6) 12/26/24 11:53 Urine Color Yellow (Yellow) 12/26/24 12:33 Urine Appearance Clear (CLEAR) 12/26/24 12:33 Urine pH 5.0 (5-7) 12/26/24 12:33 Ur Specific Corbin 1.027 (1.005-1.030) 12/26/24 12:33 Urine Protein 2+ (Negative) A 12/26/24 12:33 Urine Glucose (UA) Negative (Normal) 12/26/24 12:33 Urine Ketones Trace (Negative) 12/26/24 12:33 Urine Blood 1+ (Negative) A 12/26/24 12:33 Urine Nitrate Negative (Negative) 12/26/24 12:33 Urine Bilirubin Negative (Negative) 12/26/24 12:33 Urine Urobilinogen 1.0 mg/dL (Negative) 12/26/24 12:33 Ur Leukocyte Esterase Negative (Negative) 12/26/24 12:33 Urine RBC 0-2 /hpf (0-2) 12/26/24 12:33 Urine WBC 0-5 /hpf (0-5) 12/26/24 12:33 Ur Squamous Epith Cells 0-5 /hpf (0-5) 12/26/24 12:33 Amorphous Sediment Not Reportable 12/26/24 12:33 Urine Bacteria None seen /hpf (NONE) 12/26/24 12:33 Hyaline Casts 7.01 /lpf 12/26/24 12:33 Influenza A (PCR) Negative (Negative) 12/26/24 11:53 Influenza Type B (PCR) Negative (Negative) 12/26/24 11:53 RSV (PCR) Negative (Negative) 12/26/24 11:53 SARS-CoV-2 (PCR) Negative (Negative) 12/26/24 11:53 XR interpretation done by ED provider, pending radiology final review Discharge Plan Discharge Patient Disposition: Home Clinical Impression: Acute upper respiratory infection, CLL (chronic lymphocytic leukemia) Condition: Stable Prescriptions: New doxycycline hyclate 100 mg capsule 100 mg PO BID 7 Days Qty: 14 0RF dexamethasone 6 mg tablet 6 mg PO DAILY 5 Days Qty: 5 0RF No Action metoprolol tartrate 25 mg tablet 12.5 mg PO BID Qty: 30 0RF fluorouracil 5 % cream 1 applic topical DAILY PRN (Reason: rosacea) nitroglycerin 0.4 mg tablet, sublingual 0.4 mg sublingual Q5M PRN (Reason: chest pain) Qty: 30 3RF Rx Instructions: do not exceed 3 doses per episode albuterol sulfate 90 mcg/actuation HFA aerosol inhaler 2 inh INHALATION Q4H PRN (Reason: shortness of breath or wheezing) Qty: 18 0RF aspirin [Aspir-81] 81 mg Tablet,Delayed Release (Dr/Ec) 81 mg PO DAILY clopidogrel 75 mg tablet 75 mg PO DAILY simvastatin 40 mg tablet 40 mg PO QPM Discharge Orders: Discharge ED (Routine); Ordered 12/26/24 Ordered By: Makayla Beverly Referrals: Erma Castillo MD [Primary Care Provider, Family Practice] Discharge Diet: Usual diet Discharge Activity: Increase activity as tolerated Patient Instructions: Acute Bronchitis (ED), Opioid Safety, Pain Management, Patient Portal & Teresa Instructions Activity Restrictions/Additional Instructions: Thank you for choosing [facility] for your healthcare needs today. You have been screened and evaluated and felt safe for discharge. Health conditions do change or evolve sometimes and as such it is important that you follow up with your Primary Doctor to be re checked, 3-5 days is a general good time frame for follow up. You are always welcome to return to the ED for re assessment if your symptoms are worsening or you have new concerns Print Language: Portuguese Coding Level of Care Code ED Gluer And Slicer Hand for Rajesh Sykes
[2024-12-26 12:00] VITALS: BP 146/73; PULSE 102; O2SAT 97
[2024-12-26 12:05] LABS: Hematocrit 42.6 % (37-53); Hemoglobin 13.20 g/dL (11.27-16.99); Mean Corpuscular HGB Conc 31.0 g/dL (30-55); Mean Corpuscular Hemoglobin 30.3 pg (27-33); Mean Corpuscular Volume 97.7 fl (82-101); Nucleated Red Blood Cells % 0 %; Platelet Count 209 10^3/cmm (157-399); Red Blood Count 4.36 10^6/uL (3.85-5.65)
--- NOTE | 2024-12-26 12:08 | ECG_ITS ---
[facility] Date: 2024-[facility]26 Pat Name: Richie Hahn Department: Room: Gender: Male Office Support Clerk: : 1955 Requested By: Makayla Irizarry Order Number: [id number] Sarah MD: ABDIFATAH CHAUDHRY Measurements Intervals Eunice Rate: 105 P: 37 [place]: 140 QRS: 12 QRSD: 77 T: 55 QT: 320 QTc: 423 Interpretive Statements SINUS TACHYCARDIA ABNORMAL RHYTHM ECG Compared to ECG 02/13/2024 14:26:00 Sinus bradycardia no longer present Electronically Signed On 12-28-2024 10:50:36 CDT by ABDIFATAH CHAUDHRY [email or web address]
[2024-12-26 12:22] LABS: Slide Review Slide Review Perform
[2024-12-26 12:23] LABS: Troponin(5th) Baseline 12 ng/L (0-15); White Blood Count 170.70 10^3/uL (3.29-11.43)
[2024-12-26 12:25] LABS: Alanine Aminotransferase 16 U/L (0-41); Albumin Level 4.0 g/dL (3.5-5.2); Alkaline Phosphatase 80 U/L (40-130); Anion Gap 15.4 (5-19); Aspartate Amino Transferase 16 U/L (0-40); Blood Urea Nitrogen 15 mg/dL (8-23); Calcium 8.8 mg/dL (8.5-10.5); Carbon Dioxide 22 mmol/L (22-29); Chloride 101 mmol/L (98-107); Creatinine Clr Calc Pharmacy 88.2169; Globulin 1.9 g/dL (1.3-4.6); Glucose 133 mg/dL (65-115); Osmolality Calculated 281 mOsm/kg (285-295); Potassium 4.4 mmol/L (3.5-5.1); Sodium 134 mmol/L (136-145); Total Protein 5.9 g/dL (6.6-8.7)
[2024-12-26 12:26] LABS: Lactic Sepsis W/Reflex 1.3 mmol/L (0.5-2.2)
[2024-12-26 12:50] LABS: Glucose Urine UA Negative (Normal); Nitrate Urine Negative (Negative); Specific Gravity, Urine 1.027 (1.005-1.030)
[2024-12-26 13:07] LABS: Respiratory Syncytial Virus Ce NEGATIVE (Negative); SARS-CoV-2 PCR NEGATIVE (Negative)
[2024-12-26 13:13] LABS: UA Slide Review UA Slide Review Perf
--- NOTE | 2024-12-26 13:22 | XRR_ITS ---
PROCEDURE INFORMATION: Exam: XR Chest Exam date and time: 12/26/2024 1:36 PM Age: 69 years old Clinical indication: Shortness of breath; Prior surgery; Surgery date: 6+ months; Surgery type: Cardiac stents; Additional info: SOB; Dizziness; Headache TECHNIQUE: Imaging protocol: Radiologic exam of the chest. Views: 1 view. COMPARISON: 1. CT chest abdpel w/*[id number] 04/21/2024 4:16 PM 2. CR XR chest 1V portable [id number] 02/13/2024 12:54 PM 3. CR XR chest 2V* [id number] 02/10/2024 8:46 AM FINDINGS: Lungs: Linear atelectatic change within the left lower lobe and lingula is unchanged. No new airspace consolidation suspicious for pneumonia. No CHF. Pleural spaces: No large pleural effusion. No pneumothorax. Heart/Mediastinum: Heart size is upper limits for normal. The mediastinal contours are smooth. Faint visualization of cardiac stents projecting over the left aspect of the cardiac silhouette. Bones/joints: Mild degenerative changes are present throughout the spine. XR/XR chest 1V portable [id number] IMPRESSION: No acute findings within the chest.
--- NOTE | 2024-12-26 13:50 | ECG_ITS ---
[facility] 2024-12[facility]26 Pat Name: Richie Hahn Department: Room: Gender: Male Military Equipment Specialist: : 1955 Requested By: Makayla Irizarry Order Number: [id number] Reading MD: ABDIFATAH CHAUDHRY Measurements Intervals Egan Rate: 104 P: 33 [place]: 145 QRS: 13 QRSD: 76 T: 52 QT: 329 QTc: 433 Interpretive Statements SINUS TACHYCARDIA ABNORMAL RHYTHM ECG Compared to ECG 12/26/2024 12:08:57 No significant changes Electronically Signed On 12-28-2024 10:57:37 CDT by ABDIFATAH CHAUDHRY [email or web address]
[2024-12-26 14:00] VITALS: BP 121/72; PULSE 86; O2SAT 98
[2024-12-26] MEDS: acetaminophen 1,000 MG/100 ML PIGGYBACK 400 MG IV (14:22)
[2024-12-26 14:23] LABS: Troponin 5 2HR 9.79 ng/L (0-15)
[2024-12-26 14:24] LABS: Troponin 5 2HR Delta -2.21 ABS# (0-10)
== END 2024-12-26 15:16 | disposition home or self-care (01) ==
PROVIDERS: Emergency Provider Emergency Medicine; PCP Family Medicine
DX: J06.9 Acute upper respiratory infection, unspecified (principal); C91.10 Chronic lymphocytic leukemia of B-cell type not having achieved remission; Z79.82 Long term (current) use of aspirin; Z79.02 Long term (current) use of antithrombotics/antiplatelets; Z11.52 Encounter for screening for COVID-19; E78.5 Hyperlipidemia, unspecified; I25.10 Atherosclerotic heart disease of native coronary artery without angina pectoris; I10 Essential (primary) hypertension
CPT/HCPCS: 36415; 70450; 71045; 80053; 81001; 83605; 84484; 85025; 87040; 87637; 93005; 96365; 96375; 99285; J0131; J1100; J9999

== ENCOUNTER 2025-01-11 08:13 | Oncology outpatient (recurring) (ONCR) | payer MEDICARE, SELFPAY ==
[2025-01-11 08:39] LABS: Hematocrit 42.7 % (37-53); Hemoglobin 12.90 g/dL (11.27-16.99); Mean Corpuscular HGB Conc 30.2 g/dL (30-55); Mean Corpuscular Hemoglobin 29.9 pg (27-33); Mean Corpuscular Volume 98.8 fl (82-101); Platelet Count 258 10^3/cmm (157-399); Red Blood Count 4.32 10^6/uL (3.85-5.65)
[2025-01-11 08:55] LABS: Alanine Aminotransferase 16 U/L (0-41); Albumin Level 4.0 g/dL (3.5-5.2); Alkaline Phosphatase 77 U/L (40-130); Anion Gap 15.8 (5-19); Aspartate Amino Transferase 22 U/L (0-40); Blood Urea Nitrogen 19 mg/dL (8-23); Calcium 8.8 mg/dL (8.5-10.5); Carbon Dioxide 25 mmol/L (22-29); Chloride 106 mmol/L (98-107); Globulin 2.0 g/dL (1.3-4.6); Glucose 86 mg/dL (65-115); Osmolality Calculated 294 mOsm/kg (285-295); Potassium 5.8 mmol/L (3.5-5.1); Sodium 141 mmol/L (136-145); Total Protein 6.0 g/dL (6.6-8.7)
[2025-01-11 09:43] LABS: Slide Review Slide Review Perform
[2025-01-11 09:44] LABS: White Blood Count 173.63 10^3/uL (3.29-11.43)
[2025-01-11 09:45] LABS: Absolute Segmented Neutrophil 15.6 10/cmm (1.6-7.1); Band Neutrophils Absolute 0.0 10^3/cmm (0.0-1.2); Total Cells Counted 100 (0-100)
[2025-01-11 09:46] LABS: Atypical Lymphs 58.0 % (0-5)
[2025-01-19 14:53] LABS: CLL Prognostic Panel (BBPL) See Report
== END 2025-01-19 23:59 | disposition home or self-care (01) ==
PROVIDERS: PCP Family Medicine; Visit Provider Internal Medicine Medical Oncology
DX: C91.10 Chronic lymphocytic leukemia of B-cell type not having achieved remission (principal); I10 Essential (primary) hypertension; I25.10 Atherosclerotic heart disease of native coronary artery without angina pectoris; Z79.899 Other long term (current) drug therapy; Z86.16 Personal history of COVID-19; R21 Rash and other nonspecific skin eruption; R03.0 Elevated blood-pressure reading, without diagnosis of hypertension
CPT/HCPCS: 36415; 80053; 81263; 82232; 83615; 85007; 85025; 88185; 88264; 88271; 88367; 88374

== ENCOUNTER 2025-01-26 07:30 | Oncology outpatient (recurring) (ONCR) | payer MEDICARE, SELFPAY ==
[2025-01-26 08:04] LABS: Hematocrit 41.3 % (37-53); Hemoglobin 12.40 g/dL (11.27-16.99); Mean Corpuscular HGB Conc 30.0 g/dL (30-55); Mean Corpuscular Hemoglobin 29.5 pg (27-33); Mean Corpuscular Volume 98.1 fl (82-101); Platelet Count 175 10^3/cmm (157-399); Red Blood Count 4.21 10^6/uL (3.85-5.65)
[2025-01-26 08:13] LABS: Alanine Aminotransferase 16 U/L (0-41); Albumin Level 3.8 g/dL (3.5-5.2); Alkaline Phosphatase 67 U/L (40-130); Anion Gap 13.2 (5-19); Aspartate Amino Transferase 22 U/L (0-40); Blood Urea Nitrogen 14 mg/dL (8-23); Calcium 8.7 mg/dL (8.5-10.5); Carbon Dioxide 25 mmol/L (22-29); Chloride 108 mmol/L (98-107); Creatinine Clr Calc Pharmacy 88.4103; Globulin 2.0 g/dL (1.3-4.6); Glucose 102 mg/dL (65-115); Osmolality Calculated 293 mOsm/kg (285-295); Potassium 5.2 mmol/L (3.5-5.1); Sodium 141 mmol/L (136-145); Total Protein 5.8 g/dL (6.6-8.7)
[2025-01-26 08:32] LABS: Slide Review Slide Review Perform; White Blood Count 131.24 10^3/uL (3.29-11.43)
[2025-01-26 08:37] LABS: Absolute Segmented Neutrophil 15.7 10/cmm (1.6-7.1); Atypical Lymphs 60.0 % (0-5); Band Neutrophils Absolute 0.0 10^3/cmm (0.0-1.2); Total Cells Counted 100 (0-100)
== END 2025-02-19 23:59 | disposition home or self-care (01) ==
PROVIDERS: PCP Family Medicine; Visit Provider Internal Medicine Medical Oncology
DX: C91.10 Chronic lymphocytic leukemia of B-cell type not having achieved remission (principal); R03.0 Elevated blood-pressure reading, without diagnosis of hypertension
CPT/HCPCS: 36415; 80053; 83615; 85007; 85025; 99215

== ENCOUNTER → 2025-01-29 07:45 | Outpatient (BNVA) | payer MEDICARE, SELFPAY | PROVIDERS: PCP Family Medicine; Visit Provider Dermatology | DX: L81.4 Other melanin hyperpigmentation (principal); L82.1 Other seborrheic keratosis; L57.8 Other skin changes due to chronic exposure to nonionizing radiation; Z85.828 Personal history of other malignant neoplasm of skin; B07.8 Other viral warts; D48.5 Neoplasm of uncertain behavior of skin; L57.0 Actinic keratosis | CPT/HCPCS: 11102; 17000; 17110; 99213 ==

== ENCOUNTER → 2025-02-09 12:16 | Outpatient (BNVA) | payer MEDICARE, SELFPAY | PROVIDERS: PCP Family Medicine; Visit Provider Dermatology | DX: C43.4 Malignant melanoma of scalp and neck (principal); C95.90 Leukemia, unspecified not having achieved remission; Z85.828 Personal history of other malignant neoplasm of skin | CPT/HCPCS: 99214 ==

== ENCOUNTER → 2025-03-09 11:46 | Outpatient (BNVA) | payer MEDICARE, SELFPAY | PROVIDERS: PCP Family Medicine; Visit Provider Dermatology | DX: C43.4 Malignant melanoma of scalp and neck (principal) | CPT/HCPCS: 99213 ==

== ENCOUNTER → 2025-03-12 12:04 | Outpatient (BNVA) | payer MEDICARE, SELFPAY | PROVIDERS: PCP Family Medicine; Visit Provider Dermatology | DX: C43.4 Malignant melanoma of scalp and neck (principal) | CPT/HCPCS: 99213 ==

== ENCOUNTER → 2025-03-17 08:44 | Outpatient (BNVA) | payer MEDICARE, SELFPAY | PROVIDERS: PCP Family Medicine; Visit Provider Dermatology | DX: C43.4 Malignant melanoma of scalp and neck (principal) | CPT/HCPCS: 99213 ==

== ENCOUNTER → 2025-03-29 11:13 | Outpatient (BNVA) | payer MEDICARE, SELFPAY | PROVIDERS: PCP Family Medicine; Visit Provider Dermatology | DX: C43.4 Malignant melanoma of scalp and neck (principal) | CPT/HCPCS: 99213 ==

== ENCOUNTER → 2025-04-08 11:57 | Outpatient (BNVA) | payer MEDICARE, SELFPAY | PROVIDERS: PCP Family Medicine; Visit Provider Dermatology | DX: C43.4 Malignant melanoma of scalp and neck (principal); C95.90 Leukemia, unspecified not having achieved remission; C91.Z0 Other lymphoid leukemia not having achieved remission | CPT/HCPCS: 99213 ==

== ENCOUNTER 2025-04-12 09:00 | Oncology outpatient (recurring) (ONCR) | payer MEDICARE, SELFPAY ==
[2025-04-12 09:38] LABS: Hematocrit 37.3 % (37-53); Hemoglobin 11.20 g/dL (11.27-16.99); Mean Corpuscular HGB Conc 30.0 g/dL (30-55); Mean Corpuscular Hemoglobin 30.2 pg (27-33); Mean Corpuscular Volume 100.5 fl (82-101); Platelet Count 222 10^3/cmm (157-399); Red Blood Count 3.71 10^6/uL (3.85-5.65)
[2025-04-12 09:58] LABS: Absolute Segmented Neutrophil 1.6 10/cmm (1.6-7.1); Atypical Lymphs 92.0 % (0-5); Band Neutrophils Absolute 0.0 10^3/cmm (0.0-1.2); Total Cells Counted 100 (0-100); White Blood Count 160.94 10^3/uL (3.29-11.43)
[2025-04-12 10:10] LABS: Alanine Aminotransferase 21 U/L (0-41); Albumin Level 4.1 g/dL (3.5-5.2); Alkaline Phosphatase 67 U/L (40-130); Aspartate Amino Transferase 29 U/L (0-40); Blood Urea Nitrogen 17 mg/dL (8-23); Calcium 8.8 mg/dL (8.5-10.5); Carbon Dioxide 28 mmol/L (22-29); Chloride 107 mmol/L (98-107); Creatinine Clr Calc Pharmacy 88.4103; Globulin 1.4 g/dL (1.3-4.6); Glucose 96 mg/dL (65-115); Osmolality Calculated 291 mOsm/kg (285-295); Sodium 140 mmol/L (136-145); Total Protein 5.5 g/dL (6.6-8.7)
[2025-04-12 10:19] LABS: Anion Gap 10.7 (5-19); Potassium 5.7 mmol/L (3.5-5.1)
== END 2025-04-21 23:59 | disposition home or self-care (01) ==
PROVIDERS: PCP Family Medicine; Visit Provider Internal Medicine Medical Oncology
DX: C91.10 Chronic lymphocytic leukemia of B-cell type not having achieved remission (principal); R03.0 Elevated blood-pressure reading, without diagnosis of hypertension
CPT/HCPCS: 36415; 80053; 83615; 85007; 85025; 99214; 99215